=== PATIENT | female | born 1930 | race Caucasian/White ===

== ENCOUNTER 2016-07-17 18:16 | Emergency (ER) | payer MEDICARE ==
[2016-07-17] MEDS ORDERED: diPHENhydraMINE IV* 50 MG/ML 1 ml VIAL (BENADRYL) IV ONE (18:40)
[2016-07-17] MEDS ORDERED: Metoclopramide IV* 5 MG/ML 2 ML VIAL IV ONE (18:40)
[2016-07-17] MEDS ORDERED: Ketorolac INJ* 30 MG/ML 1 ML VIAL IV ONE (18:40)
--- NOTE | 2016-07-17 19:42 | RAD ---
Indication: Ataxia. CT of the brain was performed without IV contrast. Ventricular structures are midline. No midline shift is noted. The extra-axial spaces are unremarkable. There is no evidence of intracranial mass or hemorrhage. No other high or low density lesions are identified. The bony calvaria is grossly unremarkable. Mastoid air cells and paranasal sinuses are otherwise unremarkable. IMPRESSION: No intracranial mass or hemorrhage is noted.
[2016-07-17 21:08] LABS: Hematocrit 36 % (35-47); Hemoglobin 11.9 g/dl (12.0-16.0); Mean Corpuscular HGB Conc 33 g/dl (31-36); Mean Corpuscular Hemoglobin 29 pg (27-31); Mean Corpuscular Volume 87 fL (80-97); Mean Platelet Volume 9 um3 (7.4-10.4); Red Cell Distribution Width 18 % (10.5-15); White Blood Count 3.8 10^3/ul (3.5-10.8)
[2016-07-17 21:24] LABS: Albumin 3.6 g/dL (3.2-5.2); BUN/Creatinine Ratio 19.1 (8-20); Calcium 8.3 mg/dL (8.6-10.3); EGFR Non-African American 82.4 (>60); Globulin 2.8 g/dL (2-4); Potassium 3.5 mmol/L (3.5-5.0); Total Bilirubin 0.4 mg/dL (0.2-1.0); Total Protein 6.4 g/dL (6.4-8.9)
[2016-07-17] MEDS ORDERED: Aspirin TAB* 325 MG PO ONE (22:12)
[2016-07-17 22:42] VITALS: BP 122/61
--- NOTE | 2016-07-17 22:55 | ED ---
Calros Milian Salem, scribed for Jose Ta MD on 07/17/16 at 1944 . Dizziness - HPI Summary HPI Summary: Patient is a 86 y/o female who presents to the ED per EMS with head spinning dizziness since waking up this morning. She reports a left-sided frontal migraine, staggering, and nausea. She also reports changes in vision, but denies double vision. She also denies tinnitus. Dizziness is worsened with movement of the head. Pt states she has not eaten all day. She also states she was recently diagnosed with early macular degeneration and was started on Areds 2. She states that she has a hx of migraines, induced with stress. - History Of Current Complaint Chief Complaint: EDDizziness Stated Complaint: SYNCOPE Time Seen by Provider: 07/17/16 18:29 Hx Obtained From: Patient Onset/Duration: Gradually Timing: Intermittent Episode Lasting Severity Initially: Moderate Severity Currently: Moderate Character: Head Spinning, Dizzy Aggravating Factor(s): Change In Head Position Alleviating Factor(s): Nothing Associated Signs And Symptoms: Positive: Nausea, Other: - Headache. Staggering. - Allergies/Home Medications Allergies/Adverse Reactions: Allergies Allergy/AdvReac Type Severity Reaction Status Date / Time Sumatriptan [From Imitrex] Allergy Hallucinati Verified 07/17/16 18:25 ons seasonal/environmental Allergy Runny Nose Uncoded 06/27/16 11:48 allergies PMH/Surg Hx/FS Hx/Imm Hx Endocrine/Hematology History: Reports: Hx Thyroid Disease - had 1/2 thyroid removed, Other Endocrine/Hematological Disorders - hx cancer - breast, colon, melanoma Denies: Hx Diabetes Cardiovascular History: Reports: Hx Angina, Hx Deep Vein Thrombosis - PE May 2010, on coumadin approx 6 mos, Hx Hypertension, Hx Rheumatic Fever - A CHILD , Other Cardiovascular Problems/Disorders - PULMONARY EMBOLISMS 3 YEARS AGO Denies: Hx Congestive Heart Failure, Hx Pacemaker/ICD Respiratory History: Reports: Hx Pulmonary Embolism - 2008 Denies: Hx Asthma, Hx Chronic Obstructive Pulmonary Disease (COPD) GI History: Reports: Hx Gastroesophageal Reflux Disease, Other GI Disorders - diarrhea, constipation Denies: Hx Ulcer History: Reports: Other Problems/Disorders - incontinence Denies: Hx Renal Disease Musculoskeletal History: Reports: Hx Arthritis - OSTEOARTHRITIS KNEES, Hx Back Problems, Other Musculoskeletal History - chronic pain - back, knees Sensory History: Reports: Hx Cataracts - removed, Hx Contacts or Glasses, Hx Hearing Problem Denies: Hx Hearing Aid Opthamlomology History: Reports: Hx Cataracts - removed, Hx Contacts or Glasses Neurological History: Reports: Hx Headaches, Hx Migraine, Other Neuro Impairments/Disorders - HX POLIO Psychiatric History: Reports: Hx Anxiety - ON MEDS, Hx Depression - ON MEDS Denies: Hx Panic Disorder, Other Psychiatric Issues/Disorders - Cancer History Cancer Type, Location and Year: SKIN RIGHT ARM. COLON. RIGHT BREAST Hx Chemotherapy: No Hx Radiation Therapy: Yes - Surgical History Surgery Procedure, Year, and Place: HYSTERECTOMY 1972; RIGHT BREAST LUMPECTOMY x2 1999, COLON RESECTION 2004, illeostomy placement and reversal 2004 & 2005, HERNIA, THYROIDECTOMY 1984 (04/08), knee arthroscopy, APPENDECTOMY, TONSILLS AND ADDENOIDS, BILATERAL total knee ,BILATERAL CATARACTS 2000, abdominal hernia 2006. knee replacement - right - 2013. knee replacement - left - 2015 Hx Anesthesia Reactions: Yes - N/V Infectious Disease History: No Infectious Disease History: Reports: Hx Shingles - HX SHINGLES Denies: Hx Clostridium Difficile, Hx Hepatitis, Hx Human Immunodeficiency Virus (HIV), Hx of Known/Suspected MRSA, Hx Tuberculosis, Hx Known/Suspected VRE , Hx Known/Suspected VRSA, History Other Infectious Disease, Traveled Outside the [place] in Last 30 Days - Family History Known Family History: Positive: Cardiac Disease - Mother and brother. - Social History Alcohol Use: Rare Alcohol Amount: occassional glass of wine Hx Substance Use: No Substance Use Type: Reports: None Hx Tobacco Use: No Smoking Status (MU): Never Smoked Tobacco Amount Used/How Often: 5 CIGARETTES A DAY/ 2 YRS Length of Time of Smoking/Using Tobacco: 2 YRS Have You Smoked in the Last Year: No Review of Systems Negative: Fever Positive: Other - Changes in vision. . Negative: Diplopia Positive: Other - No tinnitus. Positive: Nausea Positive: Other - Stagger with ambulation. Neurological: Other - Head spinning, dizziness. Positive: Headache - Left-sided frontal migraine. All Other Systems Reviewed And Are Negative: Yes Physical Exam Triage Information Reviewed: Yes Vital Signs On Initial Exam: Initial Vitals Temp Pulse Resp BP Pulse Ox 100.5 F 87 20 150/87 97 07/17/16 18:20 07/17/16 18:20 07/17/16 18:20 07/17/16 18:20 07/17/16 18:20 Vital Signs Reviewed: Yes Appearance: Positive: Well-Appearing, No Pain Distress, Obese Skin: Positive: Warm, Skin Color Reflects Adequate Perfusion, Dry Head/Face: Positive: Normal Head/Face Inspection Eyes: Positive: Normal, Other: - No nystagmus. ENT: Positive: Other - No bruits. Neck: Positive: Supple, Nontender Respiratory/Lung Sounds: Positive: Clear to Auscultation, Breath Sounds Present Cardiovascular: Positive: RRR Abdomen Description: Positive: Nontender, Soft Bowel Sounds: Positive: Present Musculoskeletal: Positive: Normal Neurological: Positive: Normal, Sensory/Motor Intact, Alert, Oriented to Person Place, Time, CN Intact II-III, Reflexes Intact Psychiatric: Positive: Anxious Diagnostics - Vital Signs Vital Signs Temp Pulse Resp BP Pulse Ox 07/17/16 18:26 100.5 F 94 24 161/73 96 07/17/16 18:20 100.5 F 87 20 150/87 97 - Laboratory Lab Results: Lab Results 07/17/16 07/17/16 07/17/16 Range/Units 20:55 20:55 20:55 WBC 3.8 (3.5-10.8) 10^3/ul RBC 4.10 (4.0-5.4) 10^6/ul Hgb 11.9 L (12.0-16.0) g/dl Hct 36 (35-47) % MCV 87 (80-97) fL MCH 29 (27-31) pg MCHC 33 (31-36) g/dl RDW 18 H (10.5-15) % Plt Count 141 L (150-450) 10^3/ul MPV 9 (7.4-10.4) um3 Neut % (Auto) 72.3 (38-83) % Lymph % (Auto) 13.3 L (25-47) % Dale % (Auto) 13.3 H (1-9) % Eos % (Auto) 0.5 (0-6) % Baso % (Auto) 0.6 (0-2) % Absolute Neuts (auto) 2.7 (1.5-7.7) 10^3/ul Absolute Lymphs (auto) 0.5 L (1.0-4.8) 10^3/ul Absolute Monos (auto) 0.5 (0-0.8) 10^3/ul Absolute Eos (auto) 0 (0-0.6) 10^3/ul Absolute Basos (auto) 0 (0-0.2) 10^3/ul Absolute Nucleated RBC 0 10^3/ul Nucleated RBC % 0.1 INR (Anticoag Therapy) 0.94 (0.89-1.11) Sodium 137 (133-145) mmol/L Potassium 3.5 (3.5-5.0) mmol/L Chloride 106 (101-111) mmol/L Carbon Dioxide 24 (22-32) mmol/L Anion Gap 7 (2-11) mmol/L BUN 13 (6-24) mg/dL Creatinine 0.68 (0.51-0.95) mg/dL Est GFR ( Amer) 106.0 (>60) Est GFR (Non-Af Amer) 82.4 (>60) BUN/Creatinine Ratio 19.1 (8-20) Glucose 111 H (70-100) mg/dL Lactic Acid (0.5-2.0) mmol/L Calcium 8.3 L (8.6-10.3) mg/dL Total Bilirubin 0.40 (0.2-1.0) mg/dL AST 22 (13-39) U/L ALT 20 (7-52) U/L Alkaline Phosphatase 70 (34-104) U/L Troponin I 0.00 (<0.04) ng/mL Total Protein 6.4 (6.4-8.9) g/dL Albumin 3.6 (3.2-5.2) g/dL Globulin 2.8 (2-4) g/dL Albumin/Globulin Ratio 1.3 (1-3) TSH (0.34-5.60) mcIU/mL 07/17/16 07/17/16 Range/Units 20:55 20:55 WBC (3.5-10.8) 10^3/ul RBC (4.0-5.4) 10^6/ul Hgb (12.0-16.0) g/dl Hct (35-47) % MCV (80-97) fL MCH (27-31) pg MCHC (31-36) g/dl RDW (10.5-15) % Plt Count (150-450) 10^3/ul MPV (7.4-10.4) um3 Neut % (Auto) (38-83) % Lymph % (Auto) (25-47) % Dale % (Auto) (1-9) % Eos % (Auto) (0-6) % Baso % (Auto) (0-2) % Absolute Neuts (auto) (1.5-7.7) 10^3/ul Absolute Lymphs (auto) (1.0-4.8) 10^3/ul Absolute Monos (auto) (0-0.8) 10^3/ul Absolute Eos (auto) (0-0.6) 10^3/ul Absolute Basos (auto) (0-0.2) 10^3/ul Absolute Nucleated RBC 10^3/ul Nucleated RBC % INR (Anticoag Therapy) (0.89-1.11) Sodium (133-145) mmol/L Potassium (3.5-5.0) mmol/L Chloride (101-111) mmol/L Carbon Dioxide (22-32) mmol/L Anion Gap (2-11) mmol/L BUN (6-24) mg/dL Creatinine (0.51-0.95) mg/dL Est GFR ( Amer) (>60) Est GFR (Non-Af Amer) (>60) BUN/Creatinine Ratio (8-20) Glucose (70-100) mg/dL Lactic Acid 0.7 (0.5-2.0) mmol/L Calcium (8.6-10.3) mg/dL Total Bilirubin (0.2-1.0) mg/dL AST (13-39) U/L ALT (7-52) U/L Alkaline Phosphatase (34-104) U/L Troponin I (<0.04) ng/mL Total Protein (6.4-8.9) g/dL Albumin (3.2-5.2) g/dL Globulin (2-4) g/dL Albumin/Globulin Ratio (1-3) TSH 0.27 L (0.34-5.60) mcIU/mL Result Diagrams: 07/17/16 20:55 07/17/16 20:55 Lab Statement: Any lab studies that have been ordered have been reviewed, and results considered in the medical decision making process. - CT BRAIN CT Interpretation Completed By: Radiologist - IMPRESSION: No intracranial mass or hemorrhage is noted. - EKG 1815 EKG Interpretation: Sinus rhythm @ 88 bpm. Re-Evaluation - Re-Evaluation First Eval Re-Evaluation Time: 21:37 Second Eval Re-Evaluation Time: 22:10 Comment: Discussed plan. Dizzy Course/Dx - Course Course Of Treatment: Ms. Arciniega essentially had two complaints. She woke up this AM with vertigo when she moved her head accompanied by N/V. She reported no diplopia or other cranial nerve symptoms. Shortly after she got here, she developed a classic (for her) migraine that was left sided throbbing pain. She gets them frequently when she is stressed. Her migraine improved with our ' migraine cocktail' of ketorolac, benedryl and reglan. Surprisingly so did her vertigo and she was able to get up and ambulate without difficulty. Her W/U was negative and I think this was a peripheral vertigo. She has an appointment with Dr. Mcdowell tomorrow and I will D/C her to F/U. - Diagnoses Provider Diagnoses: Migraine headache, Vertigo Discharge - Discharge Plan Condition: Stable Disposition: HOME Patient Education Materials: Vertigo (ED), Migraine Headache (ED) Referrals: Rohith Mcdowell MD [Primary Care Provider] - Additional Instructions: Keep appointment with Dr. Souza. The documentation as recorded by the Carlos garcia Salem accurately reflects the service I personally performed and the decisions made by me, Jose Ta MD.
== END 2016-07-17 22:43 | disposition home or self-care (01) ==
LOC: ED 18:16
DX: G43.909 Migraine, unspecified, not intractable, without status migrainosus (principal); R42 Dizziness and giddiness; R11.0 Nausea
CPT/HCPCS: 36415; 70450; 80053; 83605; 84443; 84484; 85025; 85610; 93005; 96374; 96375; 99282; J1200; J1885

== ENCOUNTER 2016-08-27 07:17 | Inpatient (IN) | payer MEDICARE ==
--- NOTE | 2016-08-19 13:08 | HP ---
HISTORY AND PHYSICAL: DATE OF OFFICE VISIT: 08/19/16 DATE OF SURGERY: 08/27/16 SURGEON: Latanya Vang MD (DICTATED BY RINA OLIVARES) PROCEDURE: Left total hip arthroplasty. CHIEF COMPLAINT: Left hip pain. HISTORY OF PRESENT ILLNESS: Ms. Arciniega is an 86-year-old female with complaints of left hip pain secondary to advanced osteoarthritis. She has failed conservative management and has elected to proceed with a left total hip arthroplasty, which is scheduled for 08/27/16. PAST MEDICAL HISTORY: 1. Pulmonary embolism. 2. History of breast cancer. 3. Migraines. 4. Depression. 5. Hypothyroidism. 6. Macular degeneration. 7. TIA. 8. Post-polio syndrome. 9. Rheumatic fever. PAST SURGICAL HISTORY: 1. Lumpectomy. 2. Partial thyroidectomy. 3. Hysterectomy. 4. Appendectomy. 5. Cataract removal. 6. Polyp removal from colon, ileostomy, and reversal of ileostomy. 7. Hernia repair. 8. Bilateral total knee arthroplasties. CURRENT MEDICATIONS: 1. Xanax 0.5 mg 3 times a day as needed. 2. Verapamil 240 mg twice a day. 3. Fluoxetine 40 mg once a day. 4. Synthroid 100 mcg once a day. 5. Systane eye drops as needed. 6. Lisinopril 20 mg once a day. 7. AREDS. 8. Paxil. 9. Buspirone. 10. Tylenol. 11. Percocet. 12. Colace. ALLERGIES: To IMITREX. FAMILY HISTORY: Diabetes, heart disease, brain cancer, and Parkinson's. SOCIAL HISTORY: She is an 86-year-old female. She lives alone. She denies use of drugs or smoking. She uses occasional alcohol. REVIEW OF SYSTEMS: A complete 14-point review of systems was reviewed with the patient and was positive for a history of pulmonary embolism, vertigo, and thyroid disease. PHYSICAL EXAMINATION GENERAL: She is well developed, well nourished, in no acute distress. She is alert. VITAL SIGNS: She stands 5 feet 5 inches tall and weighs 200 pounds. Her blood pressure 116/71. Her heart rate 70. HEENT: Normocephalic, atraumatic. NECK: Supple. No palpable lymph nodes. PULMONARY: The lungs are clear to auscultation bilaterally. CARDIO: Regular rate and rhythm. Strong S1, S2. ABDOMEN: Soft, nontender, and nondistended. MUSCULOSKELETAL: Left lower extremity, the skin is intact. She walks with a slightly antalgic-type gait favoring her left hip. She has decreased internal and external rotation of her left hip. Her lower extremity muscle group strengths are intact at 5/5. She has 2+ dorsalis pedis pulses and intact sensation. NEUROLOGIC: She is alert and oriented x3. Cranial nerves II through XII are intact. ASSESSMENT AND PLAN: Ms. Arciniega is an 86-year-old female with complaints of left hip pain secondary to osteoarthritis. She has failed conservative management and has elected to proceed with a left total hip arthroplasty, which is scheduled for 08/27/[address] Vang discussed the risks and benefits of the surgery at today's visit and all of her questions were answered. Percocet and Coumadin were sent to her pharmacy for postoperative pain control and DVT prophylaxis. She will see Dr. Vang back 2 weeks after the surgery. RINA OLIVARES [id number]/[facility] #: [id number] MTDD
[~2016-08-27 07:17] MED LIST: Famotidine IV* 10 MG/ML 2 ML (20 mg) IV ONE
[2016-08-27] MEDS ORDERED: ceFAZolin 2 GM PREMIX(*) 2 GM/50 ML BAG IVPB ONE (07:36)
[2016-08-27] MEDS ORDERED: Famotidine IV* 10 MG/ML 2 ML (20 mg) ONE (07:36)
[2016-08-27] MEDS ORDERED: Ketorolac INJ* 30 MG/ML 1 ML VIAL ONE (08:21)
[2016-08-27] MEDS ORDERED: Lidocaine 2% PF * 5 ML VIAL ONE (08:21)
[2016-08-27] MEDS ORDERED: KETAMINE HCL* 50 MG/ML 10 ML VIAL ONE (08:21)
[2016-08-27] MEDS ORDERED: Propofol* 10 MG/ML 20 ML BTL IV PUSH ONE (08:21)
[2016-08-27] MEDS ORDERED: Ondansetron INJ* 2 MG/ML VIAL ONE (08:21)
[2016-08-27] MEDS ORDERED: fentaNYL* 50 MCG/ML 2 ML VIAL (100 MCG VIAL) ONE ×5 (08:21→13:06)
[2016-08-27] MEDS ORDERED: Midazolam* 1 MG/ML 5 ML VIAL (5 MG) ONE (08:21)
[2016-08-27] MEDS ORDERED: Dexamethasone IV* 4 MG/ML 1 ML (4 MG) ONE (08:21)
[2016-08-27] MEDS ORDERED: Cisatracurium* 2 MG/ML MDV 5 ML ONE (08:44)
[2016-08-27] MEDS ORDERED: Phenylephrine IV* 40 MCG/ML 10 ML SYRINGE ONE (10:08)
[2016-08-27] MEDS ORDERED: EPHEDrine (Pressors)* 50 MG/ML VIAL ONE (10:12)
[2016-08-27] MEDS ORDERED: Bupivacaine 0.5% SDV PF* 30 ML VIAL ONE (10:34)
[2016-08-27] MEDS ORDERED: Ondansetron INJ* 2 MG/ML VIAL IV PRN ×2 (11:28→12:25)
[2016-08-27] MEDS ORDERED: DiMENhydriNATE IV* 50 MG/ML VIAL IV PUSH PRN (11:28)
[2016-08-27] MEDS ORDERED: HYDROmorphone* 1 MG/ML 1 ML SYR ONE ×3 (11:47→13:35)
--- NOTE | 2016-08-27 12:12 | RAD ---
Indication: LEFT hip replacement. Comparison: No relevant prior exams available on the [facility] PACS for comparison. Technique: RIGHT lateral decubitus crosstable AP LEFT hip and pelvis 1008 hours. Report: Acetabular prosthesis component and femoral test fit/reamer component in place. No periprosthetic fracture evident. Overlying soft tissue edema and subcutaneous emphysema. IMPRESSION: Intraoperative control film.
[2016-08-27] MEDS ORDERED: Acetaminophen TAB* 325 MG PO PRN (12:19)
[2016-08-27] MEDS: fentaNYL* 50 MCG/ML 2 ML VIAL (100 MCG VIAL) IV PRN ×5 (12:24→13:19)
[2016-08-27] MEDS ORDERED: Ondansetron TAB* 4 MG PO PRN (12:25)
[2016-08-27] MEDS ORDERED: diPHENhydraMINE PO* 25 MG PO PRN (12:25)
[2016-08-27] MEDS ORDERED: diPHENhydraMINE IV* 50 MG/ML 1 ml VIAL (BENADRYL) IV PRN (12:25)
[2016-08-27] MEDS: HYDROmorphone* 1 MG/ML 1 ML SYR IV PRN ×5 (12:25→13:38)
[2016-08-27] MEDS ORDERED: Polyethylene Glycol 3350* 17 GM PACKET PO PRN (12:25)
[2016-08-27] MEDS ORDERED: Bisacodyl SUPP* 10 MG SUPP PR PRN (12:25)
[2016-08-27] MEDS ORDERED: ALPRAZolam TAB* 0.5 MG PO PRN (12:29)
[2016-08-27] MEDS ORDERED: ceFAZolin VIAL(*) 1 GM in NS 0.9% 50 ML* 50 ML IVPB SCH (13:00)
--- NOTE | 2016-08-27 13:38 | RAD ---
Edited for charges. INDICATION: Status post left total hip arthroplasty Comparison: Preoperative radiograph dated March 11, 2016 TECHNIQUE: An AP view of the pelvis was obtained. FINDINGS: The left hip prosthesis is anatomically aligned in the AP projection. There is no evidence of periprosthetic fracture. Again seen is surgical material, likely hernia repair mesh, overlying the right lower quadrant. IMPRESSION: Anatomic alignment of left hip prosthesis in the AP projection. [facility]
[2016-08-27] MEDS ORDERED: oxyCODONE/Acetamin 5/325 MG* TAB ONE (13:42)
[2016-08-27] MEDS: oxyCODONE/Acetamin 5/325 MG* TAB PO PRN ×3 (13:43→20:31)
[2016-08-27] MEDS ORDERED: Warfarin TAB(*) 6 MG PO ONE (17:00)
[2016-08-27] MEDS: ceFAZolin VIAL(*) 1 GM in NS 0.9% 50 ML* 50 ML IVPB SCH (17:59)
[2016-08-27] MEDS: PARoxetine HCL TAB* 10 MG PO SCH (17:59)
[2016-08-27] MEDS: busPIRone TAB* 5 MG PO SCH (20:22)
[2016-08-27] MEDS: Verapamil SR TAB* 240 MG PO SCH (20:22)
[2016-08-27] MEDS: Magnesium Hydroxide LIQ* 30 ML UDC PO SCH (20:23)
[2016-08-27] MEDS: Docusate CAP* 100 MG PO SCH (20:23)
[2016-08-27] MEDS ORDERED: Verapamil SR TAB* 240 MG PO SCH (21:00)
--- NOTE | 2016-08-27 21:46 | CONS ---
CONSULTATION REPORT: DATE OF CONSULT: 08/27/16 REQUESTING PHYSICIAN FOR CONSULT: Dr. Vang. ATTENDING PHYSICIAN WHILE IN THE HOSPITAL: Roque Valente MD (report being dictated by Javier Espinoza NP) PRIMARY CARE PROVIDER: Dr. Mcdowell. REASON FOR CONSULT: Medical management with comorbid medical conditions. HISTORY OF PRESENT ILLNESS: I refer you to Dr. Vang's H and P for further details. In short, Mrs. Arciniega is an 86-year-old female patient. She has a history of PE, breast cancer, migraines, and depression. She has a history of macular degeneration, hypothyroidism, TIA in the past, in addition to this rheumatic fever, and a history postpolio syndrome. She comes in to the orthopedic services today because she was being managed in the outpatient setting for left hip pain that she has had for sometime secondary to advanced osteoarthritis. She has failed conservative management and had ultimately elected to proceed with a left total hip which she underwent today. The hospitalist service was asked to evaluate to help manage her medical problem. She was evaluated in the PACU. She is complaining of having left hip pain. Of note, she did not receive spinal anesthesia. She had general anesthesia. She is awake. She denies feeling any chest pain or any shortness of breath. She denies she has any nausea. No abdominal discomfort. She states she does not feel like she is going to pass out. Her biggest complaint is she has pain in her left hip. She denies having any numbness or tingling in the lower extremities. Because of her medical complexity, we were asked to evaluate in consult. PAST MEDICAL HISTORY: Significant for: 1. History of pulmonary embolism that was provoked due to long travel. 2. Breast cancer. 3. Migraines. 4. Depression. 5. Hypothyroidism. 6. Macular degeneration. 7. TIA. 8. Rheumatic fever in the past. 9. Postpolio syndrome. 10. Hypertension. PAST SURGICAL HISTORY: 1. She has had a lumpectomy. 2. Partial thyroidectomy. 3. Hysterectomy. 4. Appendectomy. 5. Cataract extraction. 6. She has had a polyp resection, but that was complicated by a perforated bowel resulting in sepsis and an ileostomy. It has been reversed. 7. She has had a hernia repair and she has had bilateral total knee replacements and now left total hip replacement. HOME MEDICATIONS: According to her list include: 1. Percocet 1 tablet p.o. daily as needed. 2. BuSpar 5 mg p.o. b.i.d. 3. Verapamil 240 mg p.o. b.i.d. 4. Tylenol with codeine 1 tablet p.o. as instructed as needed. 5. Paxil 30 mg daily. 6. Lisinopril 20 mg daily. 7. Synthroid 100 mcg daily. 8. AREDS 1 capsule p.o. b.i.d. 9. Xanax 1 tablet p.o. t.i.d. as needed for anxiety. ALLERGIES TO MEDICATIONS: Include IMITREX. FAMILY HISTORY: Her mother has a history of hypertension. Father has a history of CVA. SOCIAL HISTORY: She does not smoke. She occasionally drinks alcohol. Surrogate decision maker, she is unable to identify this at this point, we will follow this back up. REVIEW OF SYSTEMS: There is no documented fever. She denied having any significant weight change. There was no double vision. She denies having any ear discharge. There is no rhinorrhea. There is no sore throat. There is no thyroid enlargement. She denied having any chest pain. There is no orthopnea. There is nocturnal dyspnea. Denied any abdominal pain. No nausea, no vomiting. No dysuria, no frequency. No seizure. No loss of consciousness, no pruritus, and no skin ulcerations. Review of 14 systems completed, all others negative. PHYSICAL EXAM: Reveals Vital Signs; blood pressure 136/71 with a pulse of 88, respirations 18, O2 sat 99%, and temperature 97.9. General: At this time, Ms. Arciniega is an 86-year-old female patient. She is sitting in the PACU bed. She does not appear to be in any acute distress. She is awake and she is alert, although she is pretty drowsy because of the anesthetic, but she is answering questions appropriately. HEENT: Head is atraumatic. Eyes: . Sclerae anicteric and not pale. Neck was supple. Throat: Oral mucosa appears to be moist. No oropharyngeal erythema. Heart sounds, S1 and S2. Regular rate and rhythm. No murmurs, rubs, or gallops. Lungs: Clear to auscultation bilaterally. No wheezes, rales, or rhonchi. Abdomen was soft, flat, and nontender. Bowel sounds present. Extremities: Pulses were 2+ throughout. She is unable to move the lower extremity as she does have a hip abductor pillow in place. Distal CSM checks are intact. Neurologically she is drowsy, but she awoke and she follows commands appropriately. She is oriented x3. Her home advisor are equal, she had no gross focal deficits. Her skin is intact with the exception, she has an incision to the left hip which is covered with an ABD and is clean, dry, and intact. DIAGNOSTIC STUDIES/LAB DATA: Preoperatively revealed WBC of 3.8, RBC of 4.10, hemoglobin 11.9, hematocrit 36, and platelet count 141. INR was 0.98. The sodium was 137, potassium 3.5, chloride 106, bicarb 24, BUN 13, creatinine 0.68. Her glucose is 111, lactic 0.7. AST 22, ALT 20, TSH was 0.27. Preop urine showed high specific gravity of 1.032, 1+ protein, trace ketones, 1+ bili , 2+ leukocyte esterase, 3+ wbc's. Urine culture was negative. She had a preop cardiology evaluation that did state that in the note she had a negative stress test recently. There was a preop chest x-ray, which showed no active disease. There was a preop EKG, which showed a normal sinus rhythm, rate of 80 , no ST-elevation or T-wave inversions. Old medical records reviewed. ASSESSMENT AND PLAN: Ms. Arciniega is an 86-year-old female patient coming into the orthopedic service today for an elective total hip replacement. We were asked to evaluate in consult. My recommendations at this point are: 1. Status post left total hip replacement. Defer the management to Dr. Vang and her team. 2. History of PE, obviously DVT prophylaxis will be a must. I do no think she needs therapeutic anticoagulation at this time as the PE was provoked in the past, but we need to obviously keep this in the forefront should she have any complications such as renal respiratory distress or hypoxia. She is already being placed on Lovenox and being started on Coumadin which I believe is appropriate. 3. History of breast cancer, follow with primary. 4. Migraines. She has p.r.n. Tylenol available. We will treat as needed. 5. Depression. Continue with supportive care. 6. Hypothyroidism. Continue her Synthroid. 7. Macular degeneration. Follow with her primary. 8. History of transient ischemic attack, continue secondary prevention. 9. Hypertension. We will go ahead and continue her meds as prescribed with hold parameters. I am going to continue lisinopril and verapamil. Her postop blood pressures now are actually in the 160s, we will monitor these. 10. History of rheumatic fever, follow with the primary. 11. History of polio, follow with the primary. 12. DVT prophylaxis, again high risk. She has been started on Lovenox and warfarin, will continue. 13. Fluids, electrolytes, and nutrition. I would recommend a heart-healthy diet. 14. Code status, full code. TIME SPENT: Time spent on the consult 60 minutes, greater than half the time spent [id number] with the patient obtaining my history and physical; other half the time spent going over the plan of care with the patient and implementing plan of care. I discussed the plan of care with my attending Dr. Valente who is agreement. JAVIER ESPINOZA NP CC: Dr. Vang; Dr. Mcdowell* [id number]/[facility] #: [id number] BRIGITTE
[2016-08-28] MEDS: oxyCODONE/Acetamin 5/325 MG* TAB PO PRN ×5 (00:18→17:37)
[2016-08-28] MEDS: ceFAZolin VIAL(*) 1 GM in NS 0.9% 50 ML* 50 ML IVPB SCH ×2 (01:54→09:39)
[2016-08-28] MEDS: Levothyroxine TAB* 100 MCG TAB PO SCH (05:46)
[2016-08-28 06:09] LABS: Hematocrit 29 % (35-47); Hemoglobin 9.5 g/dl (12.0-16.0)
[2016-08-28 06:25] LABS: BUN/Creatinine Ratio 29.2 (8-20); Calcium 7.9 mg/dL (8.6-10.3); EGFR African American 111.7 (>60); EGFR Non-African American 86.8 (>60)
[2016-08-28] MEDS: Lisinopril TAB* 10 MG PO SCH (08:26)
[2016-08-28] MEDS: Docusate CAP* 100 MG PO SCH ×2 (08:26→20:19)
[2016-08-28] MEDS: busPIRone TAB* 5 MG PO SCH ×2 (08:26→20:19)
[2016-08-28] MEDS: Verapamil SR TAB* 240 MG PO SCH ×2 (08:26→20:19)
[2016-08-28] MEDS: Magnesium Hydroxide LIQ* 30 ML UDC PO SCH ×2 (08:30→20:19)
[2016-08-28] MEDS ORDERED: LISINOPRIL PO SCH (09:00)
--- NOTE | 2016-08-28 10:36 | PN ---
Progress Note - Progress Note SOAP: Subjective: []Patient seen OOB in chair. Pain well managed in her left hip. Denies SOB, CP or dizziness. Objective: [] Vital Signs Temp 98.1 F 08/28/16 07:33 Pulse 78 08/28/16 07:33 Resp 18 08/28/16 09:25 BP 120/54 08/28/16 07:33 Pulse Ox 95 08/28/16 08:00 Intake & Output 08/27/16 08/28/16 08/28/16 18:59 06:59 18:59 Intake Total 2310 2480 360 Output Total 675 325 Balance 2310 1805 35 Weight 199 lb Intake: IV Fluids 2250 980 LR 2250 980 IVPB 60 ABX - CEFAZOLIN 60 Oral 60 1440 360 Output: Condon 675 325 Other: # Bowel Movements 0 Laboratory Results - last 24 hr 08/28/16 08/28/16 08/28/16 05:50 05:50 05:50 Hgb 9.5 L Hct 29 L INR (Anticoag Therapy) 1.07 Sodium 134 Potassium 4.0 Chloride 107 Carbon Dioxide 23 Anion Gap 4 BUN 19 Creatinine 0.65 Est GFR ( Amer) 111.7 Est GFR (Non-Af Amer) 86.8 BUN/Creatinine Ratio 29.2 H Glucose 136 H Calcium 7.9 L Left hip dressing is dry and intact calf is non tender and soft + DF/PF of the left foot neuro intact distally Assessment: []s/p Left total hip arthroplasty POD #1 Plan: []PT/OT WBAT LLE Coumadin with Lovenox bridge, 8 mg today Discharge to [facility] for rehab Friday
[2016-08-28] MEDS ORDERED: PRESERVISION AREDS PO SCH (11:00)
[2016-08-28] MEDS: Enoxaparin(*) 30 MG/0.3 ML SYR SUBCUT SCH (12:36)
--- NOTE | 2016-08-28 12:52 | PN ---
Subjective Date of Service: 08/28/16 Interval History: Patient seen and examined at bedside. She reports increased left hip pain today, recently took 2 Percocet and feels "they're starting to kick in." Denies CP, SOB, abd pain, n/v. No other acute concerns. Family History: Unchanged from Admission Social History: Unchanged from Admission Past Medical History: Unchanged from Admission Objective Active Medications: Acetaminophen (Tylenol Tab*) 650 mg PO Q4H PRN PRN Reason: mild pain or fever Alprazolam (Xanax Tab*) 0.5 mg PO TID PRN PRN Reason: ANXIETY Bisacodyl (Dulcolax Supp*) 10 mg OR DAILY PRN PRN Reason: constipation Buspirone HCl (Buspar Tab*) 5 mg PO BID [facility] Last Admin: 08/28/16 08:26 Dose: 5 mg Diphenhydramine HCl (Benadryl Iv*) 12.5 mg IV Q6H PRN PRN Reason: PRURITIS Last Admin: 08/27/16 20:31 Dose: 12.5 mg Diphenhydramine HCl (Benadryl Po*) 25 mg PO Q6H PRN PRN Reason: INSOMNIA Docusate Sodium (Colace Cap*) 100 mg PO BID [facility] Last Admin: 08/28/16 08:26 Dose: 100 mg Enoxaparin Sodium (Lovenox(*)) 30 mg SUBCUT Q24H [facility] Last Admin: 08/28/16 12:36 Dose: 30 mg Lactated Ringer's (Lactated Ringers 1000 Ml Bag*) 1,000 mls @ 100 mls/hr IV PER RATE [facility] Last Admin: 08/28/16 01:53 Dose: 100 mls/hr Lactulose (Lactulose*) 30 ml PO Q6H PRN PRN Reason: constipation Levothyroxine Sodium (Synthroid Tab*) 100 mcg PO 0600 [facility] Last Admin: 08/28/16 05:46 Dose: 100 mcg Lisinopril (Prinivil Tab*) 20 mg PO QAM [facility] Last Admin: 08/28/16 08:26 Dose: 20 mg Magnesium Hydroxide (Milk Of Magnesia Liq*) 30 ml PO BID [facility] Last Admin: 08/28/16 08:30 Dose: Not Given Morphine Sulfate (Morphine Inj (Syringe)*) 5 mg IV Q2H PRN PRN Reason: PAIN Multivitamins/Minerals (Preservision Areds(Multivitamins/Mineral)(Nf)) 1 cap PO DAILY [facility] Last Admin: 08/28/16 12:39 Dose: Not Given Ondansetron HCl (Zofran Inj*) 4 mg IV Q6H PRN PRN Reason: nausea Ondansetron HCl (Zofran Tab*) 4 mg PO Q6H PRN PRN Reason: NAUSEA Oxycodone HCl (Roxycodone Tab*) 10 mg PO Q4H PRN PRN Reason: breakthrough pain Oxycodone/Acetaminophen (Percocet 5/325 Tab*) 1 tab PO Q3H PRN PRN Reason: PAIN - MODERATE Last Admin: 08/28/16 04:21 Dose: 1 tab Oxycodone/Acetaminophen (Percocet 5/325 Tab*) 2 tab PO Q3H PRN PRN Reason: PAIN - MODERATE Last Admin: 08/28/16 12:35 Dose: 2 tab Paroxetine HCl (Paxil Tab*) 30 mg PO QPM [facility] Last Admin: 08/27/16 17:59 Dose: 30 mg Polyethylene Glycol/Electrolytes (Miralax*) 17 gm PO DAILY PRN PRN Reason: Constipation Verapamil HCl (Calan Sr Tab*) 240 mg PO BID [facility] Last Admin: 08/28/16 08:26 Dose: 240 mg Warfarin Sodium (Coumadin Tab(*)) 8 mg PO ONCE@1700 ONE PRN Reason: Protocol Stop: 08/28/16 17:01 Vital Signs 08/27/16 08/27/16 08/27/16 12:59 13:00 13:15 Temperature Pulse Rate 85 83 Respiratory 16 16 16 Rate Blood Pressure 163/67 144/65 (mmHg) O2 Sat by Pulse 95 100 Oximetry 08/27/16 08/27/16 08/27/16 13:19 13:30 13:38 Temperature Pulse Rate 89 Respiratory 16 16 16 Rate Blood Pressure 140/66 (mmHg) O2 Sat by Pulse 100 Oximetry 08/27/16 08/27/16 08/27/16 13:43 13:45 13:59 Temperature Pulse Rate 85 86 Respiratory 16 16 16 Rate Blood Pressure 144/62 133/65 (mmHg) O2 Sat by Pulse 99 100 Oximetry 08/27/16 08/27/16 08/27/16 14:13 14:17 14:19 Temperature 97.3 F 97.3 F Pulse Rate 85 85 Respiratory 16 16 16 Rate Blood Pressure 149/65 149/65 (mmHg) O2 Sat by Pulse 99 99 Oximetry 08/27/16 08/27/16 08/27/16 15:18 15:41 16:00 Temperature 97.7 F Pulse Rate 90 Respiratory 14 Rate Blood Pressure 119/93 (mmHg) O2 Sat by Pulse 100 100 100 Oximetry 08/27/16 08/27/16 08/27/16 16:38 16:39 18:21 Temperature 98.1 F 97.9 F Pulse Rate 92 82 Respiratory 16 16 16 Rate Blood Pressure 114/73 121/61 (mmHg) O2 Sat by Pulse 97 96 Oximetry 08/27/16 08/27/16 08/27/16 18:39 20:11 20:12 Temperature 98.4 F Pulse Rate 83 Respiratory 16 16 Rate Blood Pressure 122/55 (mmHg) O2 Sat by Pulse 96 98 Oximetry 08/27/16 08/27/16 08/27/16 20:31 20:36 21:31 Temperature Pulse Rate Respiratory 18 18 16 Rate Blood Pressure (mmHg) O2 Sat by Pulse Oximetry 08/27/16 08/28/16 08/28/16 22:25 00:17 00:18 Temperature 97.7 F Pulse Rate 87 Respiratory 16 16 16 Rate Blood Pressure 119/57 (mmHg) O2 Sat by Pulse 99 Oximetry 08/28/16 08/28/16 08/28/16 01:58 03:47 04:21 Temperature 98.1 F Pulse Rate 68 Respiratory 18 16 18 Rate Blood Pressure 113/52 (mmHg) O2 Sat by Pulse 98 Oximetry 08/28/16 08/28/16 08/28/16 06:21 07:25 07:33 Temperature 98.1 F Pulse Rate 78 Respiratory 16 18 18 Rate Blood Pressure 120/54 (mmHg) O2 Sat by Pulse 95 Oximetry 08/28/16 08/28/16 08/28/16 08:00 09:25 12:32 Temperature 97.6 F Pulse Rate 76 Respiratory 18 18 18 Rate Blood Pressure 149/55 (mmHg) O2 Sat by Pulse 95 95 Oximetry 08/28/16 12:35 Temperature Pulse Rate Respiratory 20 Rate Blood Pressure (mmHg) O2 Sat by Pulse Oximetry Oxygen Devices in Use Now: None Appearance: Older female, lying in bed, NAD Eyes: PERRLA Ears/Nose/Mouth/Throat: Clear Oropharnyx, Mucous Membranes Moist Neck: NL Appearance and Movements; NL JVP Respiratory: Symmetrical Chest Expansion and Respiratory Effort, Clear to Auscultation Cardiovascular: NL Sounds; No Murmurs; No JVD, RRR Abdominal: NL Sounds; No Tenderness; No Distention Extremities: - - left hip dressing c/d/i, distally nvi Neurological: Alert and Oriented x 3 Lines/Tubes/Other Access: Clean, Dry and Intact Peripheral IV Nutrition: Taking PO's Result Diagrams: 08/28/16 05:50 08/28/16 05:50 Assess/Plan/Problems-Billing Assessment: Ms. 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 - Patient Problems (1) Status post total replacement of left hip Code(s): Z96.642 - PRESENCE OF LEFT ARTIFICIAL HIP JOINT Comment: POD #1, management per ortho PT/OT HH stable, continue to follow Pain management (2) HTN (hypertension) Code(s): I10 - ESSENTIAL (PRIMARY) HYPERTENSION Comment: Normotensive. Continue lisinopril and verapamil. (3) Hypothyroidism Code(s): E03.9 - HYPOTHYROIDISM, UNSPECIFIED Comment: Continue levothyroxine. (4) Migraines Code(s): G43.909 - MIGRAINE, UNSP, NOT INTRACTABLE, WITHOUT STATUS MIGRAINOSUS Comment: Not an active issue PRN acetaminophen available (5) Depression with anxiety Comment: Stable Continue buspirone, paroxetine, prn alprazolam (6) Macular degeneration Code(s): H35.30 - UNSPECIFIED MACULAR DEGENERATION Comment: Continue AREDS multivitamin. (7) DVT prophylaxis Code(s): JYP4647 - Comment: Per ortho Warfarin and enoxaparin Status and Disposition: Inpatient admission. Dispo per ortho. Hospitalist co-medical management. Will follow with you.
[2016-08-28] MEDS ORDERED: Warfarin TAB(*) 4 MG PO ONE (17:00)
[2016-08-28] MEDS: PARoxetine HCL TAB* 10 MG PO SCH (17:38)
[2016-08-28] MEDS: Morphine INJ* 10 MG/ML 1 ML SYRINGE IV PRN (17:43)
[2016-08-28] MEDS: PRESERVISION AREDS PO SCH (20:18)
[2016-08-28] MEDS: oxyCODONE TAB* 5 MG TAB PO PRN (21:10)
--- NOTE | 2016-08-29 00:23 | OP ---
OPERATIVE NOTE: DATE OF OPERATION: 08/27/16 DATE OF : 34 ATTENDING SURGEON: Latanya Vang MD [employer]CE [employer] INST[employer]ATION SUPERVISOR: RINA Kovacs Ms. Mendez did help throughout the procedure with preparation of the leg, wound retraction, manipula tion of the hip, and wound closure. ANESTHESIOLOGIST: Dr. Sam. ANESTHESIA: General. 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 OPERATIVE PROCEDURE: Left total hip arthroplasty. COMPLICATIONS: None. ESTIMATED BLOOD LOSS: 250 cc. SPECIMEN: Bone and cartilage, femoral head, and acetabular release sent to pathology. HARDWARE: This is uncemented [place] total hip hardware. For the cup, a Trident hemispherical acet abular shell 52E, a 25 mm and a 20 mm screw. Trident X3 0-degree polyethylene insert 36E. For the stem, an accolade TMZF size 3 with a 132-degree neck and a 40, -2.5 36-mm Biolox delta ceramic V40 f emoral head. BRIEF HISTORY/INDICATIONS: Ms. Arciniega is an 86-year-old female with years of increasingly severe le ft hip pain. Radiographs displayed severe end-stage arthritis of the hip joint. She failed conserv ative treatment with the anti- inflammatories, pain medication, physical therapy, and intra-articula r injection. Due to continued pain and decreased quality of life, she wished to proceed with left to teena hip arthroplasty. Informed consent was obtained from the patient. She understood the risks of the surgery included, but were not limited to bleeding, infection, damage to nearby structures, cont inued pain, need for further surgery, intraoperative fracture, nerve palsy, hardware failure or loos ening, dislocation, leg length discrepancy, stroke, heart attack, blood clot, and . She wished to proceed. INTRAOPERATIVE FINDINGS: Intraoperatively, the patient was noted to have complete loss of cartilage along the femoral head and acetabulum with significant osteophyte formation. She had significant o steopenia noted throughout the procedure. DESCRIPTION OF PROCEDURE: Ms. Arciniega was identified in the preanesthesia unit. Her left lower extre mity was marked as the correct operative side. Informed consent was signed and placed in the chart. The patient was taken to the operating room and placed under general anesthesia. A Condon catheter was placed. The patient was placed in the right lateral decubitus position on the peg board. All bony prominences were well padded. Left lower extremity was prepped and draped in the usual sterile fashion. Preop time-out was made to correctly identify the patient's side and site. Appropriate p erioperative antibiotics were given within 1 hour of incision. A 14 cm posterior hip incision was made with a 10 blade and carried down to the lateral fascial laye r. The lateral fascial layer was incised in line with the skin incision. Charnley retractor was pl aced and the posterior aspect of the hip joint was visualized. The piriformis and conjoined tendons were identified and elevated off the posterolateral femur. These were tagged with two #5 Ethibonds . Next, a posterolateral capsular flap was made with electrocautery and tagged with two #5 Ethibond s. The hip was carefully dislocated. Lesser troch to the center of the femoral head measured 52 mm . Oscillating saw was used to make the appropriate femoral neck cut and the femoral head was sent t o pathology. The femur was carefully retracted anteriorly. Long-handled knife was used to remove any remaining l abrum from the acetabular rim. Extreme osteophyte formation and loss of cartilage was noted. The a cetabulum was sequentially reamed up to a size 51. A size 52 Trident hemispherical acetabular shell was chosen as the final implant. A good bleeding bone bed was obtained. Size 51 trial had good fi t. The Trident hemispherical acetabular shell 52E was impacted into the acetabulum. There was sati sfactory anteversion and abduction angle. Stability was good. One 20-mm and one [address] aced in the superior posterior quadrant for extra stability due to the osteopenia. A Trident X3 0-d egree polyethylene insert was chosen, 36E and impacted into the acetabulum without difficulty. Stab ility of the liner was checked and rechecked and noted to be stable. Next, attention was turned to preparation of the proximal femur. A canal finder was used to enter t he proximal femur. Proximal femur was sequentially broached up to a size 3. The size 3 had good an teversion and fit. A 132-degree neck trial was chosen as well as a 36+0 femoral head trial. The hi p was reduced and taken through a range of motion. Soft tissue tension was slightly increased, ther efore a -2.5 head trial was placed. The hip was reduced and taken through a range of motion. Soft t issue tension and left lengths were appropriate. Lesser troch to the center of the femoral head luke sured 54 mm. The hip was stable in all positions. The hip was carefully dislocated. All trials we re removed. Final implant chosen was an Accolade TMZF size 3 with a 132-degree neck. A Biolox delt a ceramic V40 femoral head, 36 -2.5 was chosen as the final implant. This was impacted onto the fem oral neck without difficulty. Lesser troch to the center of the femoral head measured 54 mm. The hip was reduced and taken throug h a range of motion. The hip was stable in all positions. The hip was copiously irrigated with amanda rile saline. Previously tagged capsule and tendons were reapproximated to the posterolateral femur through 2 troc hanteric drill holes. The lateral fascial layer was reapproximated using interrupted #1 Vicryls. T he rest of the incision was closed in a layered fashion using 0 and 2-0 Vicryl's. Skin was closed u sing running 3-0 Monocryl and Dermabond. Sterile Adaptic, 4x4s, and paper tape were placed over the incision. The patient's anesthesia was reversed without difficulty. She was taken to the PACU in stable condi tion. Intended weightbearing will be weightbearing as tolerated with posterior hip precautions. In tended DVT prophylaxis will be Coumadin with a Lovenox bridge. [id number]/[facility] #: [id number]
[2016-08-29] MEDS: oxyCODONE/Acetamin 5/325 MG* TAB PO PRN ×5 (00:36→21:14)
[2016-08-29] MEDS: oxyCODONE TAB* 5 MG TAB PO PRN ×2 (03:31→09:42)
[2016-08-29] MEDS: Morphine INJ* 10 MG/ML 1 ML SYRINGE IV PRN (03:32)
[2016-08-29] MEDS: Levothyroxine TAB* 100 MCG TAB PO SCH (05:48)
[2016-08-29 06:55] LABS: Hematocrit 27 % (35-47)
--- NOTE | 2016-08-29 07:47 | PN ---
Progress Note - Progress Note SOAP: Subjective: Pt. reports severe pain overnight. Objective: LLE - dressing changed, inc c/d/i. distally nvi. Vital Signs: Temp Pulse Resp BP Pulse Ox 98.9 F 86 18 117/48 94 08/29/16 04:01 08/29/16 04:01 08/29/16 07:15 08/29/16 04:01 08/29/16 04:10 Laboratory Results - last 24 hr 08/29/16 08/29/16 06:13 06:13 Hgb 9.0 L Hct 27 L INR (Anticoag Therapy) 1.59 H Assessment: 86 yo F pod 2 s/p LTHA Plan: Severe pain - will check ap pelvis 4 mg coumadin tonight, lovenox dose today - hx of PE pt/ot plan d/c to PMRU or SNF
[2016-08-29] MEDS: Magnesium Hydroxide LIQ* 30 ML UDC PO SCH ×2 (08:42→20:18)
[2016-08-29] MEDS: Docusate CAP* 100 MG PO SCH ×2 (08:42→20:18)
[2016-08-29] MEDS: PRESERVISION AREDS PO SCH ×2 (08:42→20:18)
[2016-08-29] MEDS: Verapamil SR TAB* 240 MG PO SCH (08:42)
[2016-08-29] MEDS: Lisinopril TAB* 10 MG PO SCH (08:42)
[2016-08-29] MEDS: busPIRone TAB* 5 MG PO SCH ×2 (08:42→20:18)
--- NOTE | 2016-08-29 09:30 | RAD ---
HISTORY: Postop left hip arthroplasty, pain COMPARISONS: August 27, 2016 VIEWS: 1, Single frontal view of the pelvis FINDINGS: BONE DENSITY: Normal. BONES: The patient is status post left hip arthroplasty. On the single frontal projection, there is no appreciable hardware failure or osteolysis. JOINTS: The patient is status post left hip arthroplasty. There is moderate osteoarthritis of the right hip. ALIGNMENT: There is no dislocation. SOFT TISSUES: Unremarkable. OTHER FINDINGS: A hernia repair mesh is noted IMPRESSION: STATUS POST LEFT HIP ARTHROPLASTY.
--- NOTE | 2016-08-29 10:45 | PN ---
Subjective Date of Service: 08/29/16 Interval History: Patient seen and examined at bedside. Ms. Arciniega reports "terrible pain" overnight that did improve with morphine. Denies CP, SOB, abd pain, n/v. Family History: Unchanged from Admission Social History: Unchanged from Admission Past Medical History: Unchanged from Admission Objective Active Medications: Acetaminophen (Tylenol Tab*) 650 mg PO Q4H PRN PRN Reason: mild pain or fever Alprazolam (Xanax Tab*) 0.5 mg PO TID PRN PRN Reason: ANXIETY Bisacodyl (Dulcolax Supp*) 10 mg NC DAILY PRN PRN Reason: constipation Buspirone HCl (Buspar Tab*) 5 mg PO BID [facility] Last Admin: 08/29/16 08:42 Dose: 5 mg Diphenhydramine HCl (Benadryl Iv*) 12.5 mg IV Q6H PRN PRN Reason: PRURITIS Last Admin: 08/27/16 20:31 Dose: 12.5 mg Diphenhydramine HCl (Benadryl Po*) 25 mg PO Q6H PRN PRN Reason: INSOMNIA Docusate Sodium (Colace Cap*) 100 mg PO BID [facility] Last Admin: 08/29/16 08:42 Dose: 100 mg Enoxaparin Sodium (Lovenox(*)) 30 mg SUBCUT Q24H [facility] Last Admin: 08/28/16 12:36 Dose: 30 mg Lactated Ringer's (Lactated Ringers 1000 Ml Bag*) 1,000 mls @ 100 mls/hr IV PER RATE [facility] Last Admin: 08/28/16 01:53 Dose: 100 mls/hr Sodium Chloride (Ns 0.9% 1000 Ml*) 1,000 mls @ 100 mls/hr IV PER RATE [facility] Lactulose (Lactulose*) 30 ml PO Q6H PRN PRN Reason: constipation Levothyroxine Sodium (Synthroid Tab*) 100 mcg PO 0600 [facility] Last Admin: 08/29/16 05:48 Dose: 100 mcg Lisinopril (Prinivil Tab*) 20 mg PO QAM [facility] Last Admin: 08/29/16 08:42 Dose: 20 mg Magnesium Hydroxide (Milk Of Magnesia Liq*) 30 ml PO BID [facility] Last Admin: 08/29/16 08:42 Dose: 30 ml Morphine Sulfate (Morphine Inj (Syringe)*) 5 mg IV Q2H PRN PRN Reason: PAIN Last Admin: 08/29/16 03:32 Dose: 5 mg Multivitamins/Minerals (Preservision Areds(Multivitamins/Mineral)(Nf)) 1 cap PO BID [facility] Last Admin: 08/29/16 08:42 Dose: 1 cap Ondansetron HCl (Zofran Inj*) 4 mg IV Q6H PRN PRN Reason: nausea Ondansetron HCl (Zofran Tab*) 4 mg PO Q6H PRN PRN Reason: NAUSEA Oxycodone HCl (Roxycodone Tab*) 10 mg PO Q4H PRN PRN Reason: breakthrough pain Last Admin: 08/29/16 09:42 Dose: 10 mg Oxycodone/Acetaminophen (Percocet 5/325 Tab*) 1 tab PO Q3H PRN PRN Reason: PAIN - MODERATE Last Admin: 08/28/16 04:21 Dose: 1 tab Oxycodone/Acetaminophen (Percocet 5/325 Tab*) 2 tab PO Q3H PRN PRN Reason: PAIN - MODERATE Last Admin: 08/29/16 07:15 Dose: 2 tab Paroxetine HCl (Paxil Tab*) 30 mg PO QPM [facility] Last Admin: 08/28/16 17:38 Dose: 30 mg Polyethylene Glycol/Electrolytes (Miralax*) 17 gm PO DAILY PRN PRN Reason: Constipation Verapamil HCl (Calan Sr Tab*) 240 mg PO BID [facility] Last Admin: 08/29/16 08:42 Dose: 240 mg Warfarin Sodium (Coumadin Tab(*)) 4 mg PO DAILY@1700 ONE PRN Reason: Protocol Stop: 08/29/16 17:01 Vital Signs 08/28/16 08/28/16 08/28/16 12:32 12:35 14:35 Temperature 97.6 F Pulse Rate 76 Respiratory 18 20 18 Rate Blood Pressure 149/55 (mmHg) O2 Sat by Pulse 95 Oximetry 08/28/16 08/28/16 08/28/16 15:21 15:54 17:37 Temperature 98.4 F Pulse Rate 68 Respiratory 18 18 Rate Blood Pressure 102/43 (mmHg) O2 Sat by Pulse 95 95 Oximetry 08/28/16 08/28/16 08/28/16 17:43 18:43 19:37 Temperature Pulse Rate Respiratory 18 16 16 Rate Blood Pressure (mmHg) O2 Sat by Pulse Oximetry 08/28/16 08/28/16 08/28/16 20:15 20:25 21:10 Temperature 98.2 F Pulse Rate 82 Respiratory 16 16 16 Rate Blood Pressure 137/45 (mmHg) O2 Sat by Pulse 94 Oximetry 08/28/16 08/28/16 08/29/16 23:10 23:56 00:36 Temperature 97.7 F Pulse Rate 84 Respiratory 16 16 22 Rate Blood Pressure 117/51 (mmHg) O2 Sat by Pulse 96 Oximetry 08/29/16 08/29/16 08/29/16 02:36 03:31 03:32 Temperature Pulse Rate Respiratory 16 18 18 Rate Blood Pressure (mmHg) O2 Sat by Pulse Oximetry 08/29/16 08/29/16 08/29/16 04:01 04:10 04:32 Temperature 98.9 F Pulse Rate 86 Respiratory 16 16 Rate Blood Pressure 117/48 (mmHg) O2 Sat by Pulse 92 94 Oximetry 08/29/16 08/29/16 08/29/16 05:31 07:15 07:36 Temperature 98.0 F Pulse Rate 84 Respiratory 16 18 16 Rate Blood Pressure 121/54 (mmHg) O2 Sat by Pulse 95 Oximetry 08/29/16 08/29/16 08/29/16 07:58 08:00 09:15 Temperature Pulse Rate Respiratory 16 16 18 Rate Blood Pressure (mmHg) O2 Sat by Pulse 95 Oximetry 08/29/16 08/29/16 08/29/16 09:42 10:14 10:17 Temperature Pulse Rate 65 Respiratory 18 Rate Blood Pressure 94/38 86/39 (mmHg) O2 Sat by Pulse Oximetry 08/29/16 08/29/16 10:23 10:36 Temperature Pulse Rate 65 Respiratory Rate Blood Pressure 95/37 86/40 (mmHg) O2 Sat by Pulse Oximetry Oxygen Devices in Use Now: None Appearance: Older female patient, lying in bed, NAD Eyes: PERRLA Ears/Nose/Mouth/Throat: Mucous Membranes Moist Neck: NL Appearance and Movements; NL JVP Respiratory: Symmetrical Chest Expansion and Respiratory Effort, Clear to Auscultation Cardiovascular: NL Sounds; No Murmurs; No JVD, RRR Abdominal: NL Sounds; No Tenderness; No Distention Extremities: - - left hip Neurological: Alert and Oriented x 3 Lines/Tubes/Other Access: Clean, Dry and Intact Peripheral IV Nutrition: Taking PO's Result Diagrams: 08/29/16 06:13 08/28/16 05:50 Assess/Plan/Problems-Billing Assessment: Ms. 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 - Patient Problems (1) Status post total replacement of left hip Code(s): Z96.642 - PRESENCE OF LEFT ARTIFICIAL HIP JOINT Comment: POD #2, management per ortho PT/OT HH stable, continue to follow Pain management (2) HTN (hypertension) Code(s): I10 - ESSENTIAL (PRIMARY) HYPERTENSION Comment: Hypotensive. Hold antihypertensives, suspect secondary to morphine. Will give a liter of fluid and re-evaluate. (3) Hypothyroidism Code(s): E03.9 - HYPOTHYROIDISM, UNSPECIFIED Comment: Continue levothyroxine. (4) Migraines Code(s): G43.909 - MIGRAINE, UNSP, NOT INTRACTABLE, WITHOUT STATUS MIGRAINOSUS Comment: Not an active issue PRN acetaminophen available (5) Depression with anxiety Comment: Stable Continue buspirone, paroxetine, prn alprazolam (6) Macular degeneration Code(s): H35.30 - UNSPECIFIED MACULAR DEGENERATION Comment: Continue AREDS multivitamin. (7) DVT prophylaxis Code(s): [id number] - Comment: Per ortho Warfarin and enoxaparin Status and Disposition: Inpatient admission. Dispo per ortho. Hospitalist co-medical management. Will follow with you.
[2016-08-29] MEDS: NS 0.9% 1000 ML* 1,000 ML IV SCH ×3 (10:49→16:27)
[2016-08-29] MEDS: Enoxaparin(*) 30 MG/0.3 ML SYR SUBCUT SCH (12:40)
[2016-08-29] MEDS ORDERED: Warfarin TAB(*) 4 MG PO ONE (17:00)
[2016-08-29] MEDS: PARoxetine HCL TAB* 10 MG PO SCH (17:17)
[2016-08-30] MEDS: oxyCODONE/Acetamin 5/325 MG* TAB PO PRN ×2 (02:43→08:00)
[2016-08-30] MEDS: Levothyroxine TAB* 100 MCG TAB PO SCH (05:24)
[2016-08-30 05:43] LABS: Hematocrit 28 % (35-47); Hemoglobin 9.3 g/dl (12.0-16.0)
[2016-08-30] MEDS: Docusate CAP* 100 MG PO SCH (07:53)
[2016-08-30] MEDS: Magnesium Hydroxide LIQ* 30 ML UDC PO SCH (07:53)
[2016-08-30] MEDS: Lisinopril TAB* 10 MG PO SCH ×2 (08:01→08:13)
[2016-08-30] MEDS: busPIRone TAB* 5 MG PO SCH (08:01)
--- NOTE | 2016-08-30 08:45 | PN ---
Subjective Date of Service: 08/30/16 Interval History: Patient seen and examined at bedside. She continues to endorse pain to the left hip, greater than she anticipated prior to having surgery. D Denies CP, SOB, n/v. Participating in PT. She feels frustrated that she is not feeling better faster. Looking forward to [facility] rehab. Family History: Unchanged from Admission Social History: Unchanged from Admission Past Medical History: Unchanged from Admission Objective Active Medications: Acetaminophen (Tylenol Tab*) 650 mg PO Q4H PRN PRN Reason: mild pain or fever Alprazolam (Xanax Tab*) 0.5 mg PO TID PRN PRN Reason: ANXIETY Bisacodyl (Dulcolax Supp*) 10 mg [place] DAILY PRN PRN Reason: constipation Buspirone HCl (Buspar Tab*) 5 mg PO BID [facility] Last Admin: 08/30/16 08:01 Dose: 5 mg Diphenhydramine HCl (Benadryl Iv*) 12.5 mg IV Q6H PRN PRN Reason: PRURITIS Last Admin: 08/27/16 20:31 Dose: 12.5 mg Diphenhydramine HCl (Benadryl Po*) 25 mg PO Q6H PRN PRN Reason: INSOMNIA Docusate Sodium (Colace Cap*) 100 mg PO BID [facility] Last Admin: 08/30/16 07:53 Dose: Not Given Enoxaparin Sodium (Lovenox(*)) 30 mg SUBCUT Q24H [facility] Last Admin: 08/29/16 12:40 Dose: 30 mg Sodium Chloride (Ns 0.9% 1000 Ml*) 1,000 mls @ 100 mls/hr IV PER RATE [facility] Stop: 08/30/16 20:44 Last Admin: 08/29/16 16:27 Dose: 100 mls/hr Lactulose (Lactulose*) 30 ml PO Q6H PRN PRN Reason: constipation Levothyroxine Sodium (Synthroid Tab*) 100 mcg PO 0600 [facility] Last Admin: 08/30/16 05:24 Dose: 100 mcg Lisinopril (Prinivil Tab*) 20 mg PO DAILY [facility] Last Admin: 08/30/16 08:13 Dose: Not Given Magnesium Hydroxide (Milk Of Magnesia Liq*) 30 ml PO BID [facility] Last Admin: 08/30/16 07:53 Dose: Not Given Morphine Sulfate (Morphine Inj (Syringe)*) 5 mg IV Q2H PRN PRN Reason: PAIN Last Admin: 08/29/16 03:32 Dose: 5 mg Multivitamins/Minerals (Preservision Areds(Multivitamins/Mineral)(Nf)) 1 cap PO BID [facility] Last Admin: 08/29/16 20:18 Dose: 1 cap Ondansetron HCl (Zofran Inj*) 4 mg IV Q6H PRN PRN Reason: nausea Ondansetron HCl (Zofran Tab*) 4 mg PO Q6H PRN PRN Reason: NAUSEA Oxycodone HCl (Roxycodone Tab*) 10 mg PO Q4H PRN PRN Reason: breakthrough pain Last Admin: 08/29/16 09:42 Dose: 10 mg Oxycodone/Acetaminophen (Percocet 5/325 Tab*) 1 tab PO Q3H PRN PRN Reason: PAIN - MODERATE Last Admin: 08/30/16 08:00 Dose: 1 tab Oxycodone/Acetaminophen (Percocet 5/325 Tab*) 2 tab PO Q3H PRN PRN Reason: PAIN - MODERATE Last Admin: 08/29/16 07:15 Dose: 2 tab Paroxetine HCl (Paxil Tab*) 30 mg PO QPM [facility] Last Admin: 08/29/16 17:17 Dose: 30 mg Polyethylene Glycol/Electrolytes (Miralax*) 17 gm PO DAILY PRN PRN Reason: Constipation Verapamil HCl (Calan Tab*) 240 mg PO BID [facility] Vital Signs 08/29/16 08/29/16 08/29/16 09:15 09:42 10:14 Temperature Pulse Rate Respiratory 18 18 Rate Blood Pressure 94/38 (mmHg) O2 Sat by Pulse Oximetry 08/29/16 08/29/16 08/29/16 10:17 10:23 10:36 Temperature Pulse Rate 65 65 Respiratory Rate Blood Pressure 86/39 95/37 86/40 (mmHg) O2 Sat by Pulse Oximetry 08/29/16 08/29/16 08/29/16 11:20 11:27 11:42 Temperature 99.2 F Pulse Rate 67 Respiratory 16 18 Rate Blood Pressure 100/44 93/41 (mmHg) O2 Sat by Pulse 98 Oximetry 05/25/17 05/25/17 05/25/17 14:17 14:18 15:13 Temperature 98.2 F Pulse Rate 64 Respiratory 16 14 Rate Blood Pressure 114/50 112/41 (mmHg) O2 Sat by Pulse 90 Oximetry 08/29/16 08/29/16 08/29/16 16:00 16:14 16:18 Temperature Pulse Rate 71 Respiratory 16 Rate Blood Pressure (mmHg) O2 Sat by Pulse 97 97 Oximetry 08/29/16 08/29/16 08/29/16 17:17 17:22 19:17 Temperature Pulse Rate Respiratory 16 18 Rate Blood Pressure (mmHg) O2 Sat by Pulse 97 Oximetry 08/29/16 08/29/16 08/29/16 19:36 20:30 21:14 Temperature 99.8 F Pulse Rate 70 Respiratory 18 18 18 Rate Blood Pressure 108/36 (mmHg) O2 Sat by Pulse 92 Oximetry 08/29/16 08/29/16 08/30/16 23:14 23:25 02:43 Temperature 98.5 F Pulse Rate 80 Respiratory 16 14 18 Rate Blood Pressure 119/43 (mmHg) O2 Sat by Pulse 94 Oximetry 08/30/16 08/30/16 08/30/16 03:05 04:43 07:15 Temperature 98.2 F 98.2 F Pulse Rate 84 84 Respiratory 16 16 16 Rate Blood Pressure 141/51 148/60 (mmHg) O2 Sat by Pulse 94 96 Oximetry 08/30/16 08/30/16 07:47 08:00 Temperature Pulse Rate Respiratory 16 16 Rate Blood Pressure (mmHg) O2 Sat by Pulse 96 Oximetry Oxygen Devices in Use Now: None Appearance: Older female, lying in bed, NAD Eyes: PERRLA Ears/Nose/Mouth/Throat: Mucous Membranes Moist Neck: NL Appearance and Movements; NL JVP Respiratory: Symmetrical Chest Expansion and Respiratory Effort, Clear to Auscultation Cardiovascular: NL Sounds; No Murmurs; No JVD, RRR Abdominal: NL Sounds; No Tenderness; No Distention Extremities: - - left hip incision c/d/i, moderate, healing ecchymosis to lateral left femur, distal pulses 2+ Neurological: Alert and Oriented x 3 Lines/Tubes/Other Access: Clean, Dry and Intact Peripheral IV Result Diagrams: 08/30/16 05:21 08/28/16 05:50 Assess/Plan/Problems-Billing Assessment: Ms. 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 - Patient Problems (1) Status post total replacement of left hip Code(s): Z96.642 - PRESENCE OF LEFT ARTIFICIAL HIP JOINT Comment: POD #3, management per ortho PT/OT HH stable, continue to follow Pain management (2) HTN (hypertension) Code(s): I10 - ESSENTIAL (PRIMARY) HYPERTENSION Comment: BP trending up Restart home lisinopril and verapamil. Suspect hypotension secondary to anesthesia and narcotics. (3) Hypothyroidism Code(s): E03.9 - HYPOTHYROIDISM, UNSPECIFIED Comment: Continue levothyroxine. (4) Migraines Code(s): G43.909 - MIGRAINE, UNSP, NOT INTRACTABLE, WITHOUT STATUS MIGRAINOSUS Comment: Not an active issue PRN acetaminophen available (5) Depression with anxiety Comment: Stable Continue buspirone, paroxetine, prn alprazolam (6) Macular degeneration Code(s): H35.30 - UNSPECIFIED MACULAR DEGENERATION Comment: Continue AREDS multivitamin. (7) DVT prophylaxis Code(s): BLQ4663 - Comment: Per ortho Warfarin and enoxaparin Status and Disposition: Inpatient admission. Dispo per ortho. Hospitalist co-medical management.
[2016-08-30] MEDS ORDERED: Verapamil TAB* 120 MG PO SCH (09:00)
[2016-08-30] MEDS: PRESERVISION AREDS PO SCH (09:01)
[2016-08-30] MEDS: oxyCODONE TAB* 5 MG TAB PO PRN (10:08)
--- NOTE | 2016-08-30 10:35 | PN ---
Progress Note - Progress Note SOAP: Subjective: 86 y/o female s/p LEFT NADINE with DR Vang 08/27/2016. Patient c/o pain in hip, did not think procedure would be this painful, pain into groin and thigh with movement. VSS afebrile overnight, sitting in chair comfortably, no pain @ rest. Objective: General- sitting comfortably, NAD MSK- Dressing removed, Incision C/D/I, no drainage noted, moderate ecchymosis around incision site, new dressing placed. PT 2+ b/l, minimel non-pitting edema b/l LEs neg homans b/l, + DF/PF b/l LEs Laboratory Results - last 24 hr 08/30/16 08/30/16 05:21 05:21 Hgb 9.3 L Hct 28 L INR (Anticoag Therapy) 2.12 H Vital Signs Temp 98.2 F 08/30/16 07:15 Pulse 84 08/30/16 07:15 Resp 16 08/30/16 10:08 BP 148/60 08/30/16 07:15 Pulse Ox 96 08/30/16 07:47 Intake & Output 08/29/16 08/30/16 08/30/16 18:59 06:59 18:59 Intake Total 2025 1173 345 Output Total 800 850 450 Balance 1226 323 -105 Intake: IV Fluids 906 973 ns 906 973 Oral 1120 200 345 Output: Urine 800 850 450 Other: # Bowel Movements 1 Estimated Stool Amount Small Medium Assessment: 86 y/o female s/p LEFT NADINE with DR Vang 08/27/2016 Plan: - DVT prophylaxis- INR theraputic, hold lovenox today, continue coumadin at [facility] - D/C to [facility] rehab today - Continue pain medication - Continue PT - Follow up with Dr. Vang within 10 days - OK to retart home medication- BP stable. Active Medications Generic Name Dose Route Start Last Admin Trade Name Freq PRN Reason Stop Dose Admin Acetaminophen 650 mg 08/27/16 12:19 Tylenol Tab* PO Q4H PRN mild pain or fever Alprazolam 0.5 mg 08/27/16 12:29 Xanax Tab* PO TID PRN ANXIETY Bisacodyl 10 mg 08/27/16 12:25 Dulcolax Supp* MT DAILY PRN constipation Buspirone HCl 5 mg 08/27/16 21:00 08/30/16 08:01 Buspar Tab* PO 5 mg BID STACEY Administration Diphenhydramine HCl 12.5 mg 08/27/16 12:25 08/27/16 20:31 Benadryl Iv* IV 12.5 mg Q6H PRN Administration PRURITIS Diphenhydramine HCl 25 mg 08/27/16 12:25 Benadryl Po* PO Q6H PRN INSOMNIA Docusate Sodium 100 mg 08/27/16 21:00 08/30/16 07:53 Colace Cap* PO Not Given BID STACEY Enoxaparin Sodium 30 mg 08/28/16 13:00 08/29/16 12:40 Lovenox(*) SUBCUT 30 mg Q24H SATCEY Administration Sodium Chloride 1,000 mls @ 100 mls/hr 08/29/16 10:45 08/29/16 16:27 Ns 0.9% 1000 Ml* IV 08/30/16 20:44 100 mls/hr PER RATE STACEY Administration Lactulose 30 ml 08/27/16 12:25 Lactulose* PO Q6H PRN constipation Levothyroxine Sodium 100 mcg 08/28/16 06:00 08/30/16 05:24 Synthroid Tab* PO 100 mcg 0600 STACEY Administration Lisinopril 20 mg 08/30/16 08:00 08/30/16 08:13 Prinivil Tab* PO Not Given DAILY STACEY Magnesium Hydroxide 30 ml 08/27/16 21:00 08/30/16 07:53 Milk Of Magnesia Liq* PO Not Given BID [facility] Morphine Sulfate 5 mg 08/27/16 12:25 08/29/16 03:32 Morphine Inj (Syringe)* IV 5 mg Q2H PRN Administration PAIN Multivitamins/Minerals 1 cap 08/28/16 21:00 08/30/16 09:01 Preservision Areds(Multivitamins/Mineral)(Nf) PO 1 cap BID [facility] Administration Ondansetron HCl 4 mg 08/27/16 12:25 Zofran Inj* IV Q6H PRN nausea Ondansetron HCl 4 mg 08/27/16 12:25 Zofran Tab* PO Q6H PRN NAUSEA Oxycodone HCl 10 mg 08/27/16 12:25 08/30/16 10:08 Roxycodone Tab* PO 10 mg Q4H PRN Administration breakthrough pain Oxycodone/Acetaminophen 1 tab 08/27/16 12:25 08/30/16 08:00 Percocet 5/325 Tab* PO 1 tab Q3H PRN Administration PAIN - MODERATE Oxycodone/Acetaminophen 2 tab 08/27/16 12:32 08/29/16 07:15 Percocet 5/325 Tab* PO 2 tab Q3H PRN Administration PAIN - MODERATE Paroxetine HCl 30 mg 08/27/16 18:00 08/29/16 17:17 Paxil Tab* PO 30 mg QPM [facility]ACE[facility] Administration Polyethylene Glycol/Electrolytes 17 gm 08/27/16 12:25 Miralax* PO DAILY PRN Constipation Verapamil HCl 240 mg 08/30/16 09:00 08/30/16 09:01 Calan Tab* PO 240 mg BID STACEY Administration
[2016-08-30 11:22] VITALS: BP 115/49
--- NOTE | 2016-08-31 01:32 | DS ---
DISCHARGE SUMMARY: DATE OF ADMISSION: 08/27/16 DATE OF DISCHARGE: 08/30/16 CHIEF COMPLAINT: 1. Left hip pain. 2. History of pulmonary embolism. 3. History of breast cancer. 4. Migraines. 5. Depression. 6. Hypothyroidism. 7. Macular degeneration. 8. Status post TIA. 9. Postpolio syndrome. 10. Rheumatic fever. DISCHARGE DIAGNOSES: 1. Status post left total hip arthroplasty. 2. History of pulmonary embolism. 3. History of breast cancer. 4. History of migraines. 5. Depression. 6. Hypothyroidism. 7. Macular degeneration. 8. History of TIA. 9. Post-polio syndrome. 10. History of rheumatic fever. PROCEDURE: Left total hip arthroplasty. CONSULTATIONS: 1. Physical medicine. 2. Occupational Therapy. 3. Hospital medicine. BRIEF HISTORY: Ms. 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 Latanya Vang. HOSPITAL COURSE: The patient was admitted to [facility] on 08/27/16, where she underwent an uncomplicated left total hip arthroplasty. Postoperatively, she recovered on the Surgical Short -Stay Unit. On postoperative day 2, her Condon was removed and she was voiding on her own without di fficulty. Her pain was controlled with p.o. Percocet. Her home medications were held until postope rative day 3 due to hypotension. Her labs and vital signs remained stable. She was able to bear we ight as tolerated on the left lower extremity. She advanced appropriately with physical therapy and occupational therapy. Her DVT prophylaxis was managed with Lovenox and Coumadin until she reached a therapeutic INR. By postoperative day 3, she was orthopedically and medically stable to be discha rged to [facility]. PHYSICAL EXAMINATION: General: Well-appearing, in no acute distress, alert and oriented. Mood and affect appropriate. Vital signs: On the day of discharge, temperature 98.2, pulse 84, respiration 16, blood pressure 140/60, and pulse oxygenation 69% on room air. The dressing was removed on the left hip with the incision being clear, dry, and intact. No drainage noted. Moderate ecchymosis ar ound the incision site. New dressing was placed. Posterior tibial pulses 2+ bilaterally. Minimal nonpitting edema, bilateral lower extremities. Negative Homans sign bilaterally. Positive dorsifle xion and plantar flexion, bilateral lower extremities. Intact to light touch, bilateral lower extre mities. DIAGNOSTIC STUDIES/LAB DATA: Laboratory data on the date of discharge: H and H is 9.3 and 28. INR of 2.12. Radiographs: Postoperative films show a left hip prosthesis in good placement. DISCHARGE MEDICATIONS: Include: 1. Xanax 0.5 mg p.o. t.i.d. p.r.n. 2. Tylenol 325 mg 1 to 2 tablets q.4 hours p.r.n. Not to exceed 4000 mg in a 24- hour period. 3. Colace 100 mg p.o. b.i.d. 4. Synthroid 100 mcg p.o. q.a.m. 5. Lisinopril 20 mg p.o. daily. 6. Paxil 30 mg p.o. at bedtime. 7. BuSpar 5 mg p.o. b.i.d. 8. Verapamil 240 mg p.o. b.i.d. 9. Coumadin 2 mg tablets 1 to 2 tablets everyday at 5 p.m. On 08/30/16 take 2 mg, on 08/31/16 take 4 mg, and on 09/01/16 take 2 mg and INR drawn on 09/02/16. CONDITION ON DISCHARGE: Stable. DISCHARGE INSTRUCTIONS: Ms. Arciniega is a very pleasant 86-year-old female status post left total hip replacement by Dr. Latanya Vang, which was uncomplicated. She is orthopedically and medically stab le to go to [facility]. Her labs and vital signs are stable. She will restart er home medications. She will take her Coumadin as mentioned above. She will have her INR draws ev gunjan Friday and . She will remain weightbearing as tolerated. She will continue to work wit physical therapy. She will take Percocet one-half tablet to two tablets as needed for pain contro l and Colace up to 3 times a day for constipation. She will follow up with Dr. Vang in approximate ly 10 to 14 days for incision check. She was instructed to go immediately to the ER should she deve lop chest pain or shortness of breath. Should she develop fever, increasing pain, or redness; she i s to call the office immediately. Monik is instructed to continue to monitor her blood pressures d ue to hypotension postoperative day 1 and 2. RINA DE LA FUENTE [id number]/[facility] #: [id number]
== END 2016-08-30 12:25 | DRG 470 ==
LOC: AA 07:17 → SSU 14:09
PROVIDERS: ADMIT Orthopaedic Surgery Adult Reconstructive Orthopaedic Surgery; ATTEND Orthopaedic Surgery Adult Reconstructive Orthopaedic Surgery
PROC: 0SRB04A Replacement of Left Hip Joint with Ceramic on Polyethylene Synthetic Substitute, Uncemented, Open Approach (ICD-10-PCS; principal; 2016-08-27 09:15)
DX: M17.12 Unilateral primary osteoarthritis, left knee (principal); E88.81 Metabolic syndrome and other insulin resistance; I10 Essential (primary) hypertension; Z96.653 Presence of artificial knee joint, bilateral; Z98.49 Cataract extraction status, unspecified eye; H35.30 Unspecified macular degeneration; E03.9 Hypothyroidism, unspecified; Z86.711 Personal history of pulmonary embolism; M25.752 Osteophyte, left hip; M85.80 Other specified disorders of bone density and structure, unspecified site; Z85.3 Personal history of malignant neoplasm of breast; Z86.73 Personal history of transient ischemic attack (TIA), and cerebral infarction without residual deficits; Z86.12 Personal history of poliomyelitis; Z88.8 Allergy status to other drugs, medicaments and biological substances; F41.8 Other specified anxiety disorders; Z82.49 Family history of ischemic heart disease and other diseases of the circulatory system; Z83.3 Family history of diabetes mellitus; Z81.8 Family history of other mental and behavioral disorders; Z80.8 Family history of malignant neoplasm of other organs or systems; Z85.038 Personal history of other malignant neoplasm of large intestine; E66.9 Obesity, unspecified; Z68.34 Body mass index [BMI] 34.0-34.9, adult; G43.109 Migraine with aura, not intractable, without status migrainosus; F43.21 Adjustment disorder with depressed mood
CPT/HCPCS: 36415; 72170; 80048; 85014; 85018; 85610; 94760; A9270-GY; C1713; C1776; J0690; J1100; J1170; J1200; J1650; J1885; J2250; J2270; J2405; J2704; J3010

== ENCOUNTER 2016-12-05 22:42 | Inpatient (IN) | payer MEDICARE ==
[2016-12-05] MEDS ORDERED: Ondansetron INJ* 2 MG/ML VIAL IV ONE (23:06)
[2016-12-05] MEDS ORDERED: NS 0.9% 1000 ML* 1,000 ML IV ONE (23:06)
[2016-12-05] MEDS ORDERED: Morphine INJ* 4 MG/ML 1 ML SYRINGE IV ONE (23:06)
--- NOTE | 2016-12-05 23:28 | ED ---
Ajit Milian Rebecca, scribed for Laureano Shelley MD on 12/05/16 at 2308 . Abdominal Pain/Female - HPI Summary HPI Summary: Pt is an 86 y/o F who presents to ED c/o diffuse abdominal pain. Pain began gradually this afternoon and worsened a few hours ago. Pain is currently severe , ranked 10/10 and radiates to the back. Sx aggravated by palpation, alleviated by nothing. Additionally c/o abdominal distention and nausea. States that her abdomen "just blew up" and that it is "hard as a rock." Denies V/D. PMHx "twisted colon" 5 years ago during which she experienced similar symptoms. - History of Current Complaint Chief Complaint: EDAbdPain Stated Complaint: BLOATED/HARD STOMACH Time Seen by Provider: 12/05/16 23:00 Hx Obtained From: Patient Onset/Duration: Gradual Onset, Still Present, Worse Since - a few hours ago Severity Currently: Severe Pain Intensity: 10 Pain Scale Used: 0-10 Numeric Location: Diffuse Radiates: Yes Radiates to: Back Aggravating Factor(s): Other: - Palpation Alleviating Factor(s): Nothing Associated Signs and Symptoms: Positive: Nausea, Other: - Abdominal distention. Negative: Vomiting, Diarrhea Simlar Episode/Dx as:: "twisted colon" 5 years ago Allergies/Adverse Reactions: Allergies Allergy/AdvReac Type Severity Reaction Status Date / Time Sumatriptan [From Imitrex] Allergy Hallucinati Verified 12/05/16 23:13 ons seasonal/environmental Allergy Runny Nose Uncoded 12/05/16 23:13 allergies PMH/Surg Hx/FS Hx/Imm Hx Endocrine/Hematology History: Reports: Hx Thyroid Disease - had 1/2 thyroid removed, Other Endocrine/Hematological Disorders - hx cancer - breast, colon, melanoma Denies: Hx Bone Marrow Disease, Hx Diabetes, Hx Sickle Cell Disease, Hx Anemia Cardiovascular History: Reports: Hx Angina, Hx Deep Vein Thrombosis - PE May 2010, on coumadin approx 6 mos, Hx Hypertension, Hx Rheumatic Fever - A CHILD , Other Cardiovascular Problems/Disorders - PULMONARY EMBOLISMS 3 YEARS AGO Denies: Hx Congestive Heart Failure, Hx Pacemaker/ICD Respiratory History: Reports: Hx Pulmonary Embolism - 2008 Denies: Hx Asthma, Hx Chronic Obstructive Pulmonary Disease (COPD) GI History: Reports: Hx Gastroesophageal Reflux Disease, Other GI Disorders - diarrhea, constipation Denies: Hx Ulcer History: Reports: Other Problems/Disorders - incontinence Denies: Hx Renal Disease Musculoskeletal History: Reports: Hx Arthritis - OSTEOARTHRITIS KNEES, Hx Back Problems, Hx Bursitis, Other Musculoskeletal History - chronic pain - back, knees Sensory History: Reports: Hx Cataracts - removed, Hx Contacts or Glasses, Hx Macular Degeneration, Hx Hearing Problem Denies: Hx Glaucoma, Hx Hearing Aid Opthamlomology History: Reports: Hx Cataracts - removed, Hx Contacts or Glasses , Hx Macular Degeneration Denies: Hx Glaucoma Neurological History: Reports: Hx Headaches, Hx Migraine, Other Neuro Impairments/Disorders - HX POLIO - PAIN CLINIC PT Psychiatric History: Reports: Hx Anxiety - ON MEDS, Hx Depression - ON MEDS Denies: Hx Panic Disorder, Other Psychiatric Issues/Disorders - Cancer History Cancer Type, Location and Year: Rt BREAST - 2xs LUMPECTOMY Hx Chemotherapy: No Hx Radiation Therapy: Yes - Surgical History Surgery Procedure, Year, and Place: HYSTERECTOMY 1972;. RIGHT BREAST LUMPECTOMY x2 1999,. COLON RESECTION 2004,. illeostomy placement and reversal 2004 & 2005,. THYROIDECTOMY 1984 (04/08),. left THR. APPENDECTOMY,. TONSILS AND ADENOIDS,. BILATERAL total knee ,. BILATERAL CATARACTS 2000,. abdominal hernia 2006. LT TOTAL HIP Hx Anesthesia Reactions: Yes - N/V Infectious Disease History: Reports: Hx Shingles - HX SHINGLES Denies: Hx Clostridium Difficile, Hx Hepatitis, Hx Human Immunodeficiency Virus (HIV), Hx of Known/Suspected MRSA, Hx Tuberculosis, Hx Known/Suspected VRE , Hx Known/Suspected VRSA, History Other Infectious Disease, Traveled Outside the [place] in Last 30 Days - Family History Known Family History: Positive: Cardiac Disease - Mother and brother. - Social History Alcohol Use: Occasionally Alcohol Amount: 1-2 drinks/month Hx Substance Use: No Substance Use Type: Reports: None Hx Tobacco Use: No Smoking Status (MU): Never Smoked Tobacco Amount Used/How Often: 5 CIGARETTES A DAY/ 2 YRS Length of Time of Smoking/Using Tobacco: 2 YRS Have You Smoked in the Last Year: No Review of Systems Negative: Fever Positive: Abdominal Pain - diffuse with radiation to the back, Nausea, Other - Abdominal distention. Negative: Vomiting, Diarrhea All Other Systems Reviewed And Are Negative: Yes Physical Exam Triage Information Reviewed: Yes Vital Signs On Initial Exam: Initial Vitals Temp Pulse Resp BP Pulse Ox 98.7 F 84 20 132/74 99 12/05/16 22:51 12/05/16 22:51 12/05/16 22:51 12/05/16 22:51 12/05/16 22:51 Vital Signs Reviewed: Yes Appearance: Positive: Well-Appearing, Pain Distress - moderate diffuse abd tenderness Skin: Positive: Skin Color Reflects Adequate Perfusion Head/Face: Positive: Normal Head/Face Inspection Eyes: Positive: JANES ENT: Positive: Hearing grossly normal Neck: Positive: Supple Respiratory/Lung Sounds: Positive: Clear to Auscultation, Breath Sounds Present Cardiovascular: Positive: RRR Abdomen Description: Positive: Soft, Distended, Other: - mild/mod diffuse abd tendeness Bowel Sounds: Positive: Hypoactive Musculoskeletal: Positive: Strength/ROM Intact Neurological: Positive: Alert, Oriented to Person Place, Time Psychiatric: Positive: Affect/Mood Appropriate Diagnostics - Vital Signs Vital Signs Temp Pulse Resp BP Pulse Ox 12/05/16 22:51 98.7 F 84 20 132/74 99 - Laboratory Result Diagrams: 12/06/16 00:05 12/06/16 00:05 Lab Statement: Any lab studies that have been ordered have been reviewed, and results considered in the medical decision making process. - CT CT Abd/Pel CT Interpretation: Positive (See Comments) - Low-grade small bowel obstruction at the level of a anastomosis with the cecum. ED physician reviewed this radiology report and agrees. CT Interpretation Completed By: Radiologist Re-Evaluation - Re-Evaluation First Eval Re-Evaluation Time: 02:19 Comment: Pt informed of admission. Abdominal Pain Fem Course/Dx - Course Course Of Treatment: Pt is an 86 y/o F who presents to ED c/o diffuse abdominal pain since this afternoon, worse a few hours ago. Pain is currently severe, ranked 10/10 and radiates to the back. Sx aggravated by palpation. Additionally c/o abdominal distention and nausea. States that her abdomen "just blew up" and that it is "hard as a rock." Denies V/D. PMHx "twisted colon" 5 years ago during which she experienced similar symptoms. CT Abd/Pel reveals a lw-grade small bowel obstruction at the level of a anastomosis with the cecum. In the ED course, the pt received morphine and zofran. Discussed care of pt with Dr. Mathur who accepts pt for admission. Pt will be admitted with Dx of SBO. She understands and agrees. Elevated BP noted and advised to f/u with PCP. - Diagnoses Provider Diagnoses: Small bowel obstruction - Provider Notifications Discussed Care Of Patient With: Brijesh Mathur Time Discussed With Above Provider: 02:08 Instructed by Provider To: Other - Accepts pt for admission. Discharge - Discharge Plan Condition: Fair Disposition: ADMITTED TO [facility] Referrals: Malcolm De La Torre DO [Primary Care Provider] - The documentation as recorded by the Ajit garcia Rebecca accurately reflects the service I personally performed and the decisions made by , Laureano Shelley MD.
[2016-12-06 00:18] LABS: Hematocrit 39 % (35-47); Hemoglobin 12.9 g/dl (12.0-16.0); Mean Corpuscular HGB Conc 33 g/dl (31-36); Mean Corpuscular Hemoglobin 28 pg (27-31); Mean Corpuscular Volume 84 fL (80-97); Mean Platelet Volume 9 um3 (7.4-10.4); Red Blood Count 4.62 10^6/ul (4.0-5.4); Red Cell Distribution Width 18 % (10.5-15); White Blood Count 8.9 10^3/ul (3.5-10.8)
[2016-12-06 00:34] LABS: Albumin 4.2 g/dL (3.2-5.2); BUN/Creatinine Ratio 36.7 (8-20); C Reactive Protein 1.01 mg/L (< 5.00); Calcium 9.8 mg/dL (8.6-10.3); EGFR African American 76.7 (>60); EGFR Non-African American 59.7 (>60); Globulin 3.1 g/dL (2-4); Magnesium 2.2 mg/dL (1.9-2.7); Potassium 3.9 mmol/L (3.5-5.0); Total Bilirubin 0.4 mg/dL (0.2-1.0); Total Protein 7.3 g/dL (6.4-8.9)
[2016-12-06] MEDS ORDERED: Ondansetron INJ* 2 MG/ML VIAL ONE (00:52)
[2016-12-06] MEDS ORDERED: Morphine INJ* 4 MG/ML 1 ML SYRINGE IV ONE (00:57)
[2016-12-06] MEDS ORDERED: Morphine INJ* 4 MG/ML 1 ML SYRINGE ONE (00:59)
[2016-12-06] MEDS ORDERED: Iodixanol* (CONTRAST) 320 MG/ML 100 ML SDV IV ONE (01:30)
[2016-12-06] MEDS ORDERED: Morphine INJ* 2 MG/ML 1 ML SYRINGE ONE (03:16)
[2016-12-06] MEDS ORDERED: Morphine INJ* 2 MG/ML 1 ML SYRINGE IV ONE ×2 (03:21→08:15)
[2016-12-06] MEDS ORDERED: LORazepam INJ* 2 MG/ML 1 ML VIAL IV PUSH ONE (03:28)
[2016-12-06] MEDS ORDERED: ALPRAZolam TAB* 0.5 MG PO PRN (04:37)
[2016-12-06] MEDS ORDERED: Ondansetron INJ* 2 MG/ML VIAL IV PRN (04:42)
[2016-12-06] MEDS ORDERED: NS 0.9% 1000 ML* 1,000 ML IV SCH (04:45)
[2016-12-06] MEDS ORDERED: Levothyroxine TAB* 100 MCG TAB PO SCH (06:00)
[2016-12-06] MEDS: Heparin VIAL(*) 5000 UNITS/ML VIAL (FIVE THOUSAND) SUBCUT SCH ×3 (06:36→22:58)
[2016-12-06] MEDS: Morphine INJ* 2 MG/ML 1 ML SYRINGE IV PRN ×4 (06:37→19:40)
[2016-12-06] MEDS ORDERED: hydrALAZINE IV* 20 MG/ML VIAL IV SLOW PU PRN (07:36)
[2016-12-06] MEDS ORDERED: Metoprolol Tartrate IV* 1 MG/ML 5 ML VIAL IV PRN (07:36)
[2016-12-06] MEDS: Benzocaine/Menthol LOZ* 1 LOZENGE MT PRN ×2 (07:37→11:43)
--- NOTE | 2016-12-06 08:09 | RAD ---
CLINICAL HISTORY: Diffuse abdominal pain COMPARISON: None TECHNIQUE: Multiple contiguous axial CT scans were obtained of the abdomen and pelvis after the administration of intravenous contrast. Coronal and sagittal multiplanar reformations are submitted for review. Oral contrast was not administered. Delayed images were obtained through the abdomen and pelvis. FINDINGS: LUNG BASES: The lung bases are clear. LIVER: The liver is normal in shape, size, contour, and attenuation. BILE DUCTS: There is no intrahepatic or extrahepatic biliary dilatation. GALLBLADDER: The gallbladder is normal, without pericholecystic inflammatory change. PANCREAS: The pancreas is normal, without mass or ductal dilatation. SPLEEN: Normal in size and appearance. UPPER GI TRACT: Evaluation of the gastrointestinal tract is limited by incomplete gastric distention. There is a small sliding hiatal hernia. SMALL BOWEL AND MESENTERY: There is mild diffuse distention of small bowel without dilatation or transition point. There is fecalization of the small bowel contents distally. COLON: There are multiple diverticula of the sigmoid colon. There is no pericolonic inflammatory change. There is postsurgical change to the ascending colon. ADRENALS: Normal bilaterally. KIDNEYS: The kidneys are normal in shape, size, contour, and axis. There is no hydronephrosis or nephrolithiasis. BLADDER: The bladder is smooth in contour. PELVIC ORGANS: The pelvic organs are not visualized. AORTA: There is calcific atherosclerotic disease of the abdominal aorta and its branches, without aneurysmal dilatation IVC: Unremarkable LYMPH NODES: There is no lymphadenopathy by size criteria. ABDOMINAL WALL: A hernia repair mesh is noted on the right. BONES AND SOFT TISSUES: Patient is status post left hip arthroplasty. Degenerative changes noted of the spine OTHER: None IMPRESSION: 1. THERE IS MILD DIFFUSE DISTENTION OF SMALL BOWEL WITH EVIDENCE OF SLOW TRANSIT WHICH MAY INDICATE PARTIAL OR EARLY SMALL BOWEL OBSTRUCTION. 2. DIVERTICULOSIS. 3. ATHEROSCLEROSIS.
[2016-12-06] MEDS: LORazepam INJ* 2 MG/ML 1 ML VIAL IV PUSH PRN ×2 (08:31→16:46)
--- NOTE | 2016-12-06 08:48 | HP ---
CC: Malcolm De La Torre DO * HISTORY AND PHYSICAL: DATE OF ADMISSION: 12/05/16. PRIMARY CARE PHYSICIAN: Malcolm De La Torre DO. CHIEF COMPLAINT: Abdominal pain. HISTORY OF PRESENT ILLNESS: The patient is an 86-year-old woman who late yesterday afternoon she started developing cramps in her abdomen. She states she thought she could go to the bathroom at about 5 to 6 p.m., was unable to. Then, she noticed her abdomen kept swelling, became hard and quite painful. The pain seems to radiate to her back. She called a friend because the pain increased to the point she could not take it and the friend brought her to the hospital. After getting into the bed in the emergency room, the patient had vomited several times. In fact, it smelt like fecal matter. The patient did have a CAT scan of her abdomen and pelvis, which did show a low-grade bowel obstruction. PAST MEDICAL HISTORY: Significant for pulmonary embolism provoked due to long travel, breast cancer, migraines, depression, hypothyroidism, macular degeneration, TIAs, rheumatic fever in the past, post polio syndrome, hypertension. PAST SURGICAL HISTORY: Significant for lumpectomy, partial thyroidectomy, hysterectomy, and appendectomy, cataract extraction, polyp resection, was complicated by perforated bowel resulting in sepsis and ileostomy which has since been reversed, hernia repair, and she has had bilateral total knee replacements, and left total hip replacement. CURRENT MEDICATIONS: Include: 1. Synthroid 100 mcg daily. 2. Lisinopril 20 mg daily. 3. Verapamil 240 mg twice daily. 4. Paxil 30 mg daily. 5. PreserVision AREDS 2 one capsule twice daily. 6. Xanax 0.5 mg p.o. t.i.d. p.r.n. ALLERGIES: She has an allergy/adverse reaction to IMITREX. FAMILY HISTORY: Mother had hypertension, father had a CVA. SOCIAL HISTORY: No tobacco, rare alcohol. No recreational drug use. She cannot identify a surrogate decision maker at this point. REVIEW OF SYSTEMS: A 14-point review of systems was completed with the patient. All pertinent positives and negatives are in the history of present illness, otherwise is negative. PHYSICAL EXAMINATION GENERAL: Pleasant woman sitting up in bed, in no acute distress. VITAL SIGNS: Temperature 98.7 degrees, heart rate 84 beats per minute, respiratory rate 20 breaths per minute, pulse oxygenation 99%, blood pressure 132/72. HEENT: Normocephalic, atraumatic. Pupils are equal, round, and reactive to light. Moist mucous membranes. NECK: Supple. No JVD, bruits, palpable thyroid, or lymphadenopathy. CHEST: Clear to auscultation and percussion bilaterally. CARDIOVASCULAR: S1 and S2 appreciated. ABDOMEN: Positive bowel sounds in all 4 quadrants. Distended. Very tender, but no rebound, guarding or rigidity. EXTREMITIES: No cyanosis or clubbing. +2 peripheral pulses bilaterally. NEUROLOGIC: Alert and oriented x3. Moves all extremities. SKIN: No rashes or abnormalities. DIAGNOSTIC STUDIES/LAB DATA: White count 8.9, hemoglobin 12.8, hematocrit 39, platelets 201. Sodium is 138, potassium 3.9, chloride 103, CO2 26, BUN 33, creatinine is 0.90, glucose is 116. INR is 0.81. CT of the abdomen and pelvis was interpreted by Radiology as follows: Low grade small bowel obstruction at the level of the anastomosis with the cecum. ASSESSMENT AND PLAN: 1. Small bowel obstruction. NG-tube to be inserted to low continuous suction. morphine 2 mg IV q. 2 hours p.r.n., for pain. Normal saline at 100 cc per hour. The patient is n.p.o. We will ask surgery to evaluate. Hope this will resolve in the next couple of days on its own. 2. Hypothyroidism, stable. Continue Synthroid. 3. Depression, stable. Continue her Paxil. 4. Hypertension. BP adequately controlled. Continue current regimen. 5. FEN. N.p.o. Normal saline at 100 cc an hour. 6. DVT prophylaxis. Heparin subcu. 7. The patient is a full code. TIME SPENT: Over 75 minutes was spent on this H and P, more than 40 minutes of which was spent in direct [id number] contact with the patient evaluation, physical exam, counseling, and coordination of care. [id number]/[facility] #: [id number] MTDD
[2016-12-06] MEDS ORDERED: Lisinopril TAB* 10 MG PO SCH (09:00)
[2016-12-06] MEDS ORDERED: Multivitamins/Minerals TAB PO SCH (09:00)
[2016-12-06] MEDS ORDERED: Verapamil SR TAB* 240 MG PO SCH (09:00)
[2016-12-06] MEDS: Benzocaine/Butamben/Tetracain* SPRAY TOPICAL PRN ×2 (09:11→16:37)
--- NOTE | 2016-12-06 10:02 | PN ---
Hospitalist Progress Note HOSPITALIST ADDENDUM Patient seen and examined at bedside. Mrs. Arciniega is an 86yo F with PMH of PE, breast CA, migraines, depression, hypothyroidism, TIA, HTN, prior colon polyp ressection complicated by perforation requiring ressection and ileostomy, who presented to ED with c/o abdominal pain, distention, and vomiting, found to have SBO. NGT is still draining brown material and although it's bothering her throat, her abdominal distention and pain are significantly improved. Will continue current management with IVF, pain meds, NPO. Check KUB in AM.
[2016-12-06] MEDS: Levothyroxine INJ* 100 MCG/5 ML VIAL IV SCH (10:23)
[2016-12-06] MEDS ORDERED: PARoxetine HCL TAB* 10 MG PO SCH (18:00)
[2016-12-06] MEDS ORDERED: HYDROmorphone* 1 MG/ML 1 ML SYR IV SLOW PU ONE (20:32)
[2016-12-06] MEDS ORDERED: Phenol 1.4% Spray* 177 ML BTL MT PRN (20:46)
[2016-12-07] MEDS: Morphine INJ* 2 MG/ML 1 ML SYRINGE IV PRN ×3 (02:47→15:06)
[2016-12-07 03:26] LABS: Urine Bilirubin Negative (Negative); Urine Glucose Negative (Negative); Urine Nitrite Negative (Negative)
[2016-12-07 06:06] LABS: Hematocrit 33 % (35-47); Hemoglobin 10.7 g/dl (12.0-16.0); Mean Corpuscular HGB Conc 33 g/dl (31-36); Mean Corpuscular Hemoglobin 28 pg (27-31); Mean Corpuscular Volume 85 fL (80-97); Mean Platelet Volume 9 um3 (7.4-10.4); Red Blood Count 3.88 10^6/ul (4.0-5.4); Red Cell Distribution Width 17 % (10.5-15); White Blood Count 6.1 10^3/ul (3.5-10.8)
[2016-12-07 06:22] LABS: BUN/Creatinine Ratio 36.7 (8-20); Calcium 8.2 mg/dL (8.6-10.3); EGFR African American 154.7 (>60); EGFR Non-African American 120.3 (>60); Potassium 3.2 mmol/L (3.5-5.0)
[2016-12-07] MEDS: Heparin VIAL(*) 5000 UNITS/ML VIAL (FIVE THOUSAND) SUBCUT SCH ×3 (06:32→21:22)
[2016-12-07] MEDS: Levothyroxine INJ* 100 MCG/5 ML VIAL IV SCH (06:36)
[2016-12-07] MEDS ORDERED: HYDROmorphone* 1 MG/ML 1 ML SYR IV SLOW PU ONE (07:55)
[2016-12-07] MEDS ORDERED: HYDROmorphone* 1 MG/ML 1 ML SYR ONE (08:01)
--- NOTE | 2016-12-07 08:02 | RAD ---
INDICATION: Small bowel obstruction, follow-up. COMPARISON: Comparison is made with a prior CT of the abdomen and pelvis from one day earlier. TECHNIQUE: Frontal supine films of the abdomen were obtained. FINDINGS: There is a nasogastric tube present. The catheter tip projects just to the right of the midline over the upper abdomen. The small bowel and colon appear nondistended. There are coils which project over the right lower quadrant which correlate with a mesh graft on the prior CT study. The patient is status post total left hip replacement surgery. IMPRESSION: NO EVIDENCE FOR OBSTRUCTION.
--- NOTE | 2016-12-07 08:04 | PN ---
Subjective Date of Service: 12/07/16 Interval History: HOSPITALIST PROGRESS NOTE Patient seen and examined at bedside. Abdominal pain is resolved, she denies N/V, has not passed flatus or stool yet. NGT is bothering her a lot. C/o headache she thinks is secondary to lack of caffeine. Family History: Unchanged from Admission Social History: Unchanged from Admission Past Medical History: Unchanged from Admission Objective Active Medications: Benzocaine/Butamben/Tetracaine HCl (Cetacaine [place]*) 1 spray TOPICAL Q6H PRN PRN Reason: SORE THROAT Last Admin: 12/06/16 16:37 Dose: 1 spray Heparin Sodium (Porcine) (Heparin Vial(*)) 5,000 units SUBCUT Q8HR [facility] Last Admin: 12/07/16 06:32 Dose: 5,000 units Hydralazine HCl (Apresoline Iv*) 5 mg IV SLOW PU Q6H PRN PRN Reason: SBP>170 Hydromorphone HCl (Dilaudid Iv*) 0.5 mg IV SLOW PU ONCE ONE Stop: 12/07/16 07:56 Potassium Chloride/Sodium Chloride (Ns 0.9% W/ 20 Meq Kcl 1000 Ml*) 1,000 mls @ 75 mls/hr IV PER RATE [facility] Potassium Chloride (Potassium Chloride 10 Meq/50 Ml Ivpremix*) 10 meq in 50 mls @ 50 mls/hr IV Q1H [facility] Stop: 12/07/16 10:59 Levothyroxine Sodium (Synthroid Inj*) 50 mcg IV 0600 [facility] Last Admin: 12/07/16 06:36 Dose: 50 mcg Lorazepam (Ativan Inj*) 0.5 mg IV PUSH Q4H PRN PRN Reason: ANXIETY Last Admin: 12/06/16 16:46 Dose: 0.5 mg Metoprolol Tartrate (Lopressor Iv*) 5 mg IV Q6H PRN PRN Reason: HR>110 Morphine Sulfate (Morphine Inj (Syringe)*) 2 mg IV Q2H PRN PRN Reason: PAIN Last Admin: 12/07/16 02:47 Dose: 2 mg Ondansetron HCl (Zofran Inj*) 4 mg IV Q4H PRN PRN Reason: NAUSEA Phenol/Menthol (Chloroseptic Throat [place]*) 1 spray MT TID PRN PRN Reason: SORE THROAT Throat Lozenges (Chloraseptic Farshad*) 1 farshad MT Q3H PRN PRN Reason: SORE THROAT Last Admin: 12/06/16 11:43 Dose: 1 farshad Vital Signs 12/07/16 12/07/16 12/07/16 02:47 03:03 07:33 Temperature 98.4 F 97.7 F Pulse Rate 82 87 Respiratory 16 14 17 Rate Blood Pressure 161/80 157/80 (mmHg) O2 Sat by Pulse 95 97 Oximetry Oxygen Devices in Use Now: None Appearance: Elderly lady lying in bed in NAD. Eyes: No Scleral Icterus Ears/Nose/Mouth/Throat: Mucous Membranes Moist Neck: Trachea Midline Respiratory: Symmetrical Chest Expansion and Respiratory Effort, Clear to Auscultation Cardiovascular: RRR - Normal S1 and S2 Abdominal: - - Soft, no distention, no tenderness, BS+ hypoactive Neurological: Alert and Oriented x 3, NL Muscle Strength and Tone Lines/Tubes/Other Access: Clean, Dry and Intact Peripheral IV Result Diagrams: 12/07/16 05:55 12/07/16 05:55 Assess/Plan/Problems-Billing Assessment: Mrs. Arciniega is an 86yo F with PMH of PE, breast CA, migraines, depression, hypothyroidism, macular degeneration, TIA, HTN, prior colon polyp ressection complicated by perforation requiring ressection and ileostomy, who presented to ED with c/o abdominal pain, found to have possible partial SBO. - Patient Problems (1) Partial small bowel obstruction Comment: - Improving. - KUB shows resolution. - Will d/c NGT and start clear liquids as tolerated. (2) Hypokalemia Comment: - Replete. (3) Hypothyroidism Comment: - Continue levothyroxine IV for now. Will change to PO if she tolerates diet. (4) HTN (hypertension) Comment: - Has not required PRN IV hydralazine so far. - Will resume lisinopril and verapamil if she tolerates PO. (5) DVT prophylaxis Comment: - SQ heparin. - Encourage ambulation. (6) Full code status Status and Disposition: Inpatient for management of pSBO requiring >48h for stabilization.
[2016-12-07] MEDS: KCL 10 MEQ/50 ML IVPREMIX* 10 MEQ/50 ML BAG IV SCH ×3 (08:49→12:31)
[2016-12-07 09:13] LABS: Magnesium 1.9 mg/dL (1.9-2.7)
[2016-12-07] MEDS: NS 0.9% w/ 20 Meq KCL 1000 ML* 1,000 ML IV SCH (14:41)
[2016-12-07] MEDS: LORazepam INJ* 2 MG/ML 1 ML VIAL IV PUSH PRN (21:22)
[2016-12-08] MEDS: NS 0.9% w/ 20 Meq KCL 1000 ML* 1,000 ML IV SCH (03:18)
[2016-12-08] MEDS: Levothyroxine INJ* 100 MCG/5 ML VIAL IV SCH (06:08)
[2016-12-08] MEDS: Heparin VIAL(*) 5000 UNITS/ML VIAL (FIVE THOUSAND) SUBCUT SCH ×3 (06:09→21:35)
[2016-12-08] MEDS ORDERED: ALPRAZolam TAB* 0.5 MG PO PRN (07:06)
[2016-12-08] MEDS: Verapamil SR TAB* 240 MG PO SCH (09:21)
[2016-12-08] MEDS: Lisinopril TAB* 10 MG PO SCH (09:22)
[2016-12-08 09:44] LABS: Hematocrit 38 % (35-47); Hemoglobin 12.1 g/dl (12.0-16.0); Mean Corpuscular HGB Conc 32 g/dl (31-36); Mean Corpuscular Hemoglobin 27 pg (27-31); Mean Corpuscular Volume 85 fL (80-97); Mean Platelet Volume 10 um3 (7.4-10.4); Red Cell Distribution Width 18 % (10.5-15); White Blood Count 4.7 10^3/ul (3.5-10.8)
[2016-12-08 10:23] LABS: BUN/Creatinine Ratio 11.1 (8-20); Calcium 8.9 mg/dL (8.6-10.3); EGFR African American 115.8 (>60)
[2016-12-08] MEDS: Potassium Chlor TAB* 20 MEQ TAB.ER PO SCH ×3 (12:21→21:34)
--- NOTE | 2016-12-08 12:51 | PN ---
Subjective Date of Service: 12/08/16 Interval History: HOSPITALIST PROGRESS NOTE Patient seen and examined at bedside. She feels better today, abdominal pain is much improved, had a small BM last night and wants to eat more. Family History: Unchanged from Admission Social History: Unchanged from Admission Past Medical History: Unchanged from Admission Objective Active Medications: Alprazolam (Xanax Tab*) 0.5 mg PO TID PRN PRN Reason: ANXIETY Benzocaine/Butamben/Tetracaine HCl (Cetacaine [place]*) 1 spray TOPICAL Q6H PRN PRN Reason: SORE THROAT Last Admin: 12/06/16 16:37 Dose: 1 spray Heparin Sodium (Porcine) (Heparin Vial(*)) 5,000 units SUBCUT Q8HR [facility] Last Admin: 12/08/16 06:09 Dose: 5,000 units Hydralazine HCl (Apresoline Iv*) 5 mg IV SLOW PU Q6H PRN PRN Reason: SBP>170 Levothyroxine Sodium (Synthroid Tab*) 100 mcg PO DAILY@0600 [facility] Lisinopril (Prinivil Tab*) 20 mg PO DAILY [facility] Last Admin: 12/08/16 09:22 Dose: 20 mg Lorazepam (Ativan Inj*) 0.5 mg IV PUSH Q4H PRN PRN Reason: ANXIETY Last Admin: 12/07/16 21:22 Dose: 0.5 mg Metoprolol Tartrate (Lopressor Iv*) 5 mg IV Q6H PRN PRN Reason: HR>110 Morphine Sulfate (Morphine Inj (Syringe)*) 2 mg IV Q2H PRN PRN Reason: PAIN Last Admin: 12/07/16 15:06 Dose: 2 mg Ondansetron HCl (Zofran Inj*) 4 mg IV Q4H PRN PRN Reason: NAUSEA Last Admin: 12/07/16 21:22 Dose: 4 mg Paroxetine HCl (Paxil Tab*) 30 mg PO QPM [facility] Phenol/Menthol (Chloroseptic Throat [place]*) 1 spray MT TID PRN PRN Reason: SORE THROAT Last Admin: 12/07/16 08:08 Dose: 1 spray Potassium Chloride (Klor Con Er Tab*) 40 meq PO TID [facility] Last Admin: 12/08/16 12:21 Dose: 40 meq Throat Lozenges (Chloraseptic Farshad*) 1 farshad MT Q3H PRN PRN Reason: SORE THROAT Last Admin: 12/06/16 11:43 Dose: 1 farshad Verapamil HCl (Calan Sr Tab*) 240 mg PO DAILY [facility] Last Admin: 12/08/16 09:21 Dose: 240 mg Vital Signs 12/08/16 12/08/16 12/08/16 07:18 07:41 11:20 Temperature 98.3 F 97.8 F Pulse Rate 71 72 Respiratory 16 16 16 Rate Blood Pressure 153/73 137/75 (mmHg) O2 Sat by Pulse 98 97 Oximetry Oxygen Devices in Use Now: None Appearance: Pleasant elderly lady lying in bed in NAD. Eyes: No Scleral Icterus Ears/Nose/Mouth/Throat: Mucous Membranes Moist Neck: Trachea Midline Respiratory: Symmetrical Chest Expansion and Respiratory Effort, Clear to Auscultation Cardiovascular: RRR - Normal S1 and S2 Abdominal: - - Obese, soft, NT, BS+ Neurological: Alert and Oriented x 3, NL Muscle Strength and Tone Lines/Tubes/Other Access: Clean, Dry and Intact Peripheral IV Nutrition: Taking PO's Result Diagrams: 12/08/16 08:39 12/08/16 08:39 Assess/Plan/Problems-Billing Assessment: Mrs. Arciniega is an 86yo F with PMH of PE, breast CA, migraines, depression, hypothyroidism, macular degeneration, TIA, HTN, prior colon polyp ressection complicated by perforation requiring ressection and ileostomy, who presented to ED with c/o abdominal pain, found to have possible partial SBO. - Patient Problems (1) Partial small bowel obstruction Comment: - Resolved. - Advance diet as tolerated. (2) Hypokalemia Comment: - Replete. (3) Hypothyroidism Comment: - Resume PO levothyroxine. (4) HTN (hypertension) Comment: - Resume lisinopril and verapamil PO. (5) DVT prophylaxis Comment: - SQ heparin. - Encourage ambulation. (6) Full code status Status and Disposition: Inpatient for management of pSBO requiring >48h for stabilization. Anticipate d/ c in AM if she tolerates PO diet and meds.
[2016-12-08] MEDS ORDERED: PARoxetine HCL TAB* 10 MG PO SCH (18:00)
[2016-12-09] MEDS: Heparin VIAL(*) 5000 UNITS/ML VIAL (FIVE THOUSAND) SUBCUT SCH (05:45)
[2016-12-09] MEDS ORDERED: Levothyroxine TAB* 100 MCG TAB PO SCH (06:00)
[2016-12-09 07:02] LABS: BUN/Creatinine Ratio 15.2 (8-20); Blood Urea Nitrogen 10 mg/dL (6-24); CO2 Carbon Dioxide 22 mmol/L (22-32); Chloride 107 mmol/L (101-111); EGFR African American 109.7 (>60); EGFR Non-African American 85.3 (>60); Glucose 82 mg/dL (70-100); Sodium 136 mmol/L (133-145)
[2016-12-09 07:03] LABS: Anion Gap 7 mmol/L (2-11)
[2016-12-09 08:02] VITALS: BP 153/66
[2016-12-09] MEDS: Potassium Chlor TAB* 20 MEQ TAB.ER PO SCH (09:14)
[2016-12-09] MEDS: Lisinopril TAB* 10 MG PO SCH (09:14)
[2016-12-09] MEDS: Verapamil SR TAB* 240 MG PO SCH (09:14)
--- NOTE | 2016-12-09 22:59 | DS ---
CC: Dr. De La Torre * DISCHARGE SUMMARY: DATE OF ADMISSION: 12/05/16 DATE OF DISCHARGE: 12/09/16 PRIMARY CARE PROVIDER: Dr. De La Torre DISCHARGE DIAGNOSES: 1. Partial small bowel obstruction. 2. Hypokalemia. SECONDARY DIAGNOSES: 1. History of pulmonary embolism provoked due to long travel. 2. Breast cancer status post lumpectomy. 3. Migraines. 4. Depression. 5. Hypothyroidism. 6. Macular degeneration. 7. Transient ischemic attack. 8. Remote history of rheumatic fever. 9. Postpolio syndrome. 10. Hypertension. 11. History of polypectomy complicated by perforated bowel resulting in need for right colon resection and ileostomy, which was later on reversed (in 2005). 12. Status post hernia repair. MEDICATION LIST: 1. Alprazolam 0.5 mg p.o. t.i.d. as needed for anxiety. 2. Levothyroxine 100 mcg p.o. q.a.m. 3. Lisinopril 20 mg p.o. q.a.m. 4. PreserVision 1 capsule p.o. b.i.d. 5. Paroxetine 20 mg p.o. q.p.m. 6. Verapamil 240 mg p.o. b.i.d. HOSPITAL COURSE: Mrs. Arciniega is an 86-year-old lady with a past medical history as stated above that presented to the emergency room with complaints of crampy abdominal pain associated with abdominal distention, nausea, and vomiting. Admitting physician described her vomit as fecal matter. For more details about presentation, I refer you to her history and physical. In the emergency room, the patient had a CT of the abdomen and pelvis that showed mild diffuse distention of the small bowel with evidence of low transit, which may indicate partial or early small bowel obstruction. The patient had a NG tube placed that drained 700 mL of foul-smelling material and the patient had significant symptomatic improvement after that. She was able to pass flatus, had bowel movements, and was started on clear liquid diet that was slowly advanced to a low residue diet that she tolerated well. She was also able to tolerate her oral meds. The patient was advised to follow a low-residue diet for 2 weeks and then return to her usual diet. She states that usually she has daily bowel movements at home and does not need laxative. She was educated about signs and symptoms of small bowel obstruction, and she was encouraged to return to the emergency room if her symptoms recur. The patient is medically stable to be discharged home today. PHYSICAL EXAMINATION: Vital Signs: Temperature 98.2, heart rate is 66, respiratory rate is 16, oxygen saturation is 99% on room air, and blood pressure is 153/66. General: The patient is a pleasant elderly lady, lying in bed, in no acute distress. CVS: Normal S1, S2. Regular rate and rhythm. Chest: Breath sounds present bilaterally with no added sounds. Abdomen is obese, soft, nontender, nondistended. Bowel sounds are present. Neuro: She is alert, awake, oriented x3. Able to move all 4 extremities. DIET: Low residue diet for 2 weeks. ACTIVITIES: As tolerated. DISPOSITION: To home. STATUS WHILE IN THE HOSPITAL: Inpatient. Please keep in mind this is a summarized version of this patient's hospital stay. If you need more information, please feel free to call me at [phone] or please obtain the full medical records. TIME SPENT: Approximately 45 minutes was spent to complete this discharge. [id number]/[facility] #: [id number] MTDD
== END 2016-12-09 10:00 | disposition home or self-care (01) | DRG 390 ==
LOC: ED 22:42 → SSU 12-06 04:43
PROVIDERS: ADMIT Internal Medicine; ATTEND Internal Medicine
PROC: 0D9670Z Drainage of Stomach with Drainage Device, Via Natural or Artificial Opening (ICD-10-PCS; principal; 2016-12-06)
DX: K56.60 Unspecified intestinal obstruction (principal); I10 Essential (primary) hypertension; E87.6 Hypokalemia; E03.9 Hypothyroidism, unspecified; F32.9 Major depressive disorder, single episode, unspecified; G43.909 Migraine, unspecified, not intractable, without status migrainosus; H35.30 Unspecified macular degeneration; G14 Postpolio syndrome; Z85.3 Personal history of malignant neoplasm of breast; Z86.711 Personal history of pulmonary embolism; Z86.73 Personal history of transient ischemic attack (TIA), and cerebral infarction without residual deficits; Z79.899 Other long term (current) drug therapy; Z88.8 Allergy status to other drugs, medicaments and biological substances; Z82.49 Family history of ischemic heart disease and other diseases of the circulatory system; Z82.3 Family history of stroke
CPT/HCPCS: 36415; 74000; 74177; 80048; 80053; 81003; 83605; 83690; 83735; 85025; 85610; 86140; 87040; A9270-GY; J1170; J1644; J2060; J2270; J2405; J3480; Q9967

== ENCOUNTER 2017-03-20 10:32 | Inpatient (IN) | payer MEDICARE ==
--- NOTE | 2017-03-08 06:25 | HP ---
HISTORY AND PHYSICAL: DATE OF OFFICE VISIT: 03/07/17 DATE OF SURGERY: 03/20/17 SURGEON: Latanya Vang MD * (DICTATED BY RINA OLIVARES) PROCEDURE: Right total hip arthroplasty. CHIEF COMPLAINT: Right hip pain. HISTORY OF PRESENT ILLNESS: Ms. Arciniega is an 86-year-old female with complaints of right hip pain secondary to advanced osteoarthritis. She has failed conservative management and elected to proceed with a right total hip arthroplasty, which is scheduled for 03/20/[address] Vang. PAST MEDICAL HISTORY: History of DVT/PE, history of breast cancer, migraines, depression, hypothyroidism, macular degeneration, post-polio syndrome, and rheumatic fever. PAST SURGICAL HISTORY: Lumpectomy, partial thyroidectomy, hysterectomy, appendectomy, cataract removal, tonsillectomy, adenoidectomy, ileostomy, reversal of ileostomy and colon resection, hernia repair, bilateral total knee arthroplasties, and left total hip arthroplasty. CURRENT MEDICATIONS: 1. AREDS. 2. Lisinopril 20 mg daily. 3. Synthroid 100 mcg daily. 4. Paroxetine 30 mg daily. 5. Verapamil 240 mg twice daily. ALLERGIES: IMITREX. FAMILY HISTORY: Diabetes, heart disease, brain tumor, Parkinson's, and stroke. SOCIAL HISTORY: She is an 86-year-old female. She lives alone. She does not smoke or use drugs. She uses occasional alcohol. REVIEW OF SYSTEMS: A complete 14-point review of systems was reviewed with the patient. It was positive for vertigo and hypothyroidism, history of DVT and PE , last was May 2010. She denies history of hepatitis C, HIV, MRSA, or anesthesia problems. PHYSICAL EXAMINATION GENERAL: She is well developed, well nourished, in no acute distress. VITAL SIGNS: She stands 5 feet 4 inches tall, weighs 180 pounds. Blood pressure 130/76, heart rate 84. HEENT: Normocephalic, atraumatic. NECK: Supple. No palpable lymph nodes. PULMONARY: The lungs are clear to auscultation bilaterally. CARDIO: Regular rate and rhythm. Strong S1, S2. ABDOMEN: Soft, nontender, nondistended. NEUROLOGICAL: Alert and oriented x3. Cranial nerves II through XII are intact. MUSCULOSKELETAL: Right lower extremity, skin is intact. There are no open wounds or abrasions. She has decreased internal and external rotation of the right hip. She walks with antalgic-type gait. She is distally neurovascularly intact. ASSESSMENT AND PLAN: Ms. 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 She has failed conservative management and elected to proceed with a right total hip arthroplasty, which is scheduled for 03/20/[address] Vang discussed the risks and benefits of the surgery at today's visit and all of her questions were answered. Coumadin was sent to her pharmacy for postoperative DVT prophylaxis. She has a current prescription for Percocet. She will follow up with Dr. Vang in 2 weeks after the surgery. RINA OLIVARES [id number]/[facility] #: [id number] MTDD
[~2017-03-20 10:32] MED LIST changes: +Buffered Lidocaine 0.9% SYRIN* 5 ML/SYR SYRINGE INTRADERM ONE; +Gabapentin CAP(*) 300 MG PO ONE
[2017-03-20] MEDS ORDERED: Gabapentin CAP(*) 300 MG ONE (10:46)
[2017-03-20] MEDS ORDERED: ceFAZolin 2 GM PREMIX (*) 2 GM/50 ML BAG IVPB ONE (10:47)
[2017-03-20] MEDS ORDERED: Buffered Lidocaine 0.9% SYRIN* 5 ML/SYR SYRINGE ONE (10:47)
[2017-03-20] MEDS ORDERED: Famotidine IV* 10 MG/ML 2 ML (20 mg) ONE (10:47)
[2017-03-20] MEDS ORDERED: fentaNYL* 50 MCG/ML 2 ML VIAL (100 MCG VIAL) ONE ×2 (11:29→15:20)
[2017-03-20] MEDS ORDERED: Morphine PF AMP (0.5MG/ML)* 5 MG/10 ML AMP ONE (11:29)
[2017-03-20] MEDS ORDERED: Midazolam* 1 MG/ML 2 ML VIAL (2 MG) ONE (11:29)
[2017-03-20] MEDS ORDERED: KETAMINE HCL* 50 MG/ML 10 ML VIAL ONE (14:43)
[2017-03-20] MEDS ORDERED: Propofol* 10 MG/ML 20 ML BTL IV PUSH ONE (14:54)
[2017-03-20] MEDS ORDERED: Dexamethasone IV* 4 MG/ML 1 ML (4 MG) ONE (14:54)
[2017-03-20] MEDS ORDERED: DiMENhydriNATE IV* 50 MG/ML VIAL ONE (14:54)
[2017-03-20] MEDS ORDERED: Succinylcholine* 20 MG/ML 10 ML VIAL ONE (14:54)
[2017-03-20] MEDS ORDERED: Ondansetron INJ* 2 MG/ML VIAL ONE (14:54)
[2017-03-20] MEDS ORDERED: Lidocaine 2% PF * 5 ML VIAL ONE (14:54)
[2017-03-20] MEDS ORDERED: Ketorolac INJ* 30 MG/ML 1 ML VIAL ONE (14:54)
[2017-03-20] MEDS ORDERED: diPHENhydraMINE IV* 50 MG/ML 1 ml VIAL (BENADRYL) IV PRN (15:44)
[2017-03-20] MEDS ORDERED: Bisacodyl SUPP* 10 MG SUPP PR PRN (15:44)
[2017-03-20] MEDS ORDERED: Ondansetron INJ* 2 MG/ML VIAL IV PRN (15:44)
[2017-03-20] MEDS ORDERED: Polyethylene Glycol 3350* 17 GM PACKET PO PRN (15:44)
[2017-03-20] MEDS ORDERED: oxyCODONE/Acetamin 5/325 MG* TAB PO PRN ×2 (15:44→17:18)
[2017-03-20] MEDS ORDERED: ceFAZolin 1 GM VIAL(*) 1 GM in NS 0.9% 50 ML* 50 ML IVPB SCH (16:00)
[2017-03-20] MEDS ORDERED: HYDROmorphone INJ* 1 MG/ML CARPUJECT SYRINGE ONE ×2 (16:13→17:38)
--- NOTE | 2017-03-20 16:24 | RAD ---
HISTORY: Right hip replacement COMPARISONS: March 07, 2017 VIEWS: 1, portable intraoperative view of the pelvis to hip arthroplasty FINDINGS: BONE DENSITY: Normal. BONES: The patient is status post bilateral hip arthroplasty. There is a temporary femoral sizing component on the right. JOINTS: The patient is status post bilateral hip arthroplasty ALIGNMENT: There is no dislocation. SOFT TISSUES: Unremarkable. OTHER FINDINGS: None. IMPRESSION: PORTABLE INTRAOPERATIVE VIEW OF THE PELVIS DURING HIP ARTHROPLASTY
[2017-03-20] MEDS ORDERED: Bupivacaine 0.5% SDV PF* 30 ML VIAL ONE (16:53)
[2017-03-20] MEDS ORDERED: DiMENhydriNATE IV* 50 MG/ML VIAL IV PUSH PRN (17:18)
[2017-03-20] MEDS ORDERED: oxyCODONE TAB* 5 MG TAB ONE (17:38)
[2017-03-20] MEDS: HYDROmorphone INJ* 1 MG/ML CARPUJECT SYRINGE IV PRN ×5 (17:40→18:24)
[2017-03-20] MEDS: oxyCODONE TAB* 5 MG TAB PO PRN (17:51)
--- NOTE | 2017-03-20 18:10 | RAD ---
HISTORY: Postoperative arthroplasty COMPARISONS: March 07, 2017 VIEWS: 3, Frontal view of the pelvis with frontal and crosstable lateral views of the right hip FINDINGS: BONE DENSITY: Normal. BONES: The patient is status post bilateral hip arthroplasty. On the right, there is no hardware failure or osteolysis. JOINTS: The patient is status post bilateral hip arthroplasty ALIGNMENT: There is no dislocation. SOFT TISSUES: Unremarkable. OTHER FINDINGS: A hernia repair mesh is noted. IMPRESSION: STATUS POST BILATERAL HIP ARTHROPLASTY
[2017-03-20] MEDS: oxyCODONE/Acetamin 5/325 MG* TAB PO PRN (20:52)
[2017-03-20] MEDS: Verapamil SR TAB* 240 MG PO SCH (20:52)
[2017-03-20] MEDS: Docusate CAP* 100 MG PO SCH (20:53)
[2017-03-20] MEDS ORDERED: Warfarin TAB(*) 6 MG PO ONE (21:00)
[2017-03-20] MEDS: PARoxetine HCL TAB* 10 MG PO SCH (21:09)
[2017-03-20] MEDS ORDERED: ceFAZolin 1 GM in Dextrose (*) 1 GM/50 ML BAG IVPB SCH (23:00)
[2017-03-20] MEDS: ALPRAZolam TAB* 0.5 MG PO PRN (23:14)
--- NOTE | 2017-03-21 04:19 | OP ---
DATE OF OPERATION: 03/20/17 - ROOM #339 DATE OF : 34 SURGEON: Latanya Vang MD PHOTOGRAPHIC REPRODUCTION TECHNICIAN: RINA Nettles. Ms. Zarco did help throughout the procedure with preparation of the leg, wound retraction, manipulation of the hip and wound closure. ANESTHESIOLOGIST: Dr. Flores. ANESTHESIA: General. PRE-OP DIAGNOSIS: Severe end-stage degenerative osteoarthritis of the right hip joint. POST-OP DIAGNOSIS: Severe end-stage degenerative osteoarthritis of the right hip joint. OPERATIVE PROCEDURE: Right total hip arthroplasty. ESTIMATED BLOOD LOSS: 400 cc. COMPLICATIONS: None. SPECIMEN: Femoral head and acetabular reaming sent to pathology. HARDWARE USED: This is uncemented Letitia total hip hardware. For the cup, a Trident 52E hemispherical acetabular shell, a single 20 mm cancellous bone screw. For the stem, an Accolade TMZF size 3.5 with a 132-degree neck. For the insert, a Trident X3 1-degree polyethylene insert 36E. For the head, a Biolox delta ceramic V40 femoral head 36 -3.5. BRIEF HISTORY/INDICATIONS: Ms. Arciniega is an 86-year-old female with 6 months of increasingly severe right hip pain. She failed conservative treatment with anti- inflammatories, pain medication, intraarticular injection, and physical therapy. Radiographs showed [id number] arthritis. Due to continued pain and decreased quality of life, the patient elected to undergo right total hip arthroplasty. Informed consent was obtained from the patient. She understood the risks of procedure included but were not limited to bleeding, infection, damage to nearby structures, continued pain, need for further surgery, intraoperative fracture, nerve palsy, hardware failure or loosening, dislocation , leg length discrepancy, stroke, heart attack, blood clot and . She wished to proceed. INTRAOPERATIVE FINDINGS: Intraoperatively, the patient was noted to have severe end-stage arthritis. She had complete loss of cartilage along the femoral head and acetabulum. DESCRIPTION OF PROCEDURE: Ms. Arciniega was identified in the preanesthesia unit. Her right lower extremity was marked as the correct operative side. Informed consent was signed and placed in the chart. The patient was taken to the operating room and placed under general anesthesia. A Condon catheter was placed. She was placed in the right lateral decubitus position on the peg board with all bony prominences well padded. The right lower extremity was prepped and draped in the usual sterile fashion. Preop time-out was made to correctly identify the patient's side and site. Appropriate perioperative antibiotics were given within 1 hour of incision. A 12 cm posterior hip incision was made with the 10 blade and carried down to the lateral fascial layer. Lateral fascia layer was incised in line with the skin incision. A Charnley retractor was placed. The piriformis and conjoint tendons were elevated off the posterolateral femur and tagged with #5 Ethibond. Electrocautery was used to make a standard posterolateral capsular flap and this was also tagged with #5 Ethibond. The hip was carefully dislocated. Lesser troch to center of the femoral head measured 65 mm. The oscillating saw was used to make the appropriate femoral neck cut. The femur was carefully retracted anteriorly. After appropriate placement of retractors, the acetabulum was visualized. A long- handled knife was used to sharply remove any remaining labrum from the acetabular rim. The acetabulum was sequentially reamed up to a size 51. Bleeding subchondral bone bed was obtained. A 51 trial had excellent fit. The final implant chosen was a Trident hemispherical acetabular shell 52E. This was impacted into the acetabulum without difficulty. There was good stability of the acetabular cup. A single 20 mm screw was placed in the superior posterior quadrant for extra stability. A Trident X3 polyethylene insert 36E was chosen as the appropriate implant. This was impacted into the acetabulum without difficulty. Stability of the insert was checked and rechecked and noted to be stable. Attention was next turned to the preparation of the femur. A canal finder was used to enter the proximal femur. The femur was sequentially broached up to a size 3.5. The 3.5 stem had excellent fit and appropriate anteversion. A 132 neck trial and 36 +0 head trial were chosen. The lesser troch to center of the femoral head measured 56 mm. The hip was reduced and taken through range of motion. The hip was stable in all positions. The hip was dislocated. All trials were carefully removed. Final implant chosen was an Accolade TMZF size 3.5 with a 132-degree neck. This was impacted into the femoral canal without difficulty. The femoral stem was stable with appropriate anteversion. The final head chosen was a Biolox delta ceramic V40 36 -3.5 femoral head. This was impacted on to the femoral neck without difficulty. The lesser troch to center of the femoral head measured 55 mm. The hip was reduced and taken through a range of motion. The hip was stable in all positions. The hip was copiously irrigated with sterile saline. The previously tagged capsule and tendons were reapproximated to the posterolateral femur through 2 trochanteric drill holes. The lateral fascial layer was closed using interrupted #1 Vicryl. The rest of the incision was closed in a layered fashion using 0 and 2-0 Vicryl. Skin was closed using running 3-0 Monocryl and Dermabond. Sterile Adaptic, 4x4, and paper tape were used to cover the incision. The patient's anesthesia was reversed without difficulty. She was taken to the PACU in stable condition. Intended weightbearing will be weightbearing as tolerated. Intended DVT prophylaxis will be Coumadin with a Lovenox bridge. [id number]/[facility] #: [id number] BRIGITTE
[2017-03-21] MEDS: Levothyroxine TAB* 100 MCG TAB PO SCH (05:31)
[2017-03-21] MEDS: oxyCODONE TAB* 5 MG TAB PO PRN ×2 (05:31→23:27)
[2017-03-21 05:43] LABS: Hematocrit 31 % (35-47); Hemoglobin 10.5 g/dl (12.0-16.0); Mean Platelet Volume 9 um3 (7.4-10.4)
[2017-03-21 05:57] LABS: BUN/Creatinine Ratio 23.9 (8-20); Calcium 7.8 mg/dL (8.6-10.3); EGFR African American 100.9 (>60); EGFR Non-African American 78.4 (>60); Potassium 3.7 mmol/L (3.5-5.0)
[2017-03-21] MEDS: ceFAZolin 1 GM in Dextrose (*) 1 GM/50 ML BAG IVPB SCH ×2 (08:15→17:03)
[2017-03-21] MEDS: Vitamin THERAPEUTIC TAB PO SCH (08:51)
[2017-03-21] MEDS: Docusate CAP* 100 MG PO SCH ×2 (08:51→20:46)
[2017-03-21] MEDS: oxyCODONE/Acetamin 5/325 MG* TAB PO PRN ×3 (08:52→17:04)
[2017-03-21] MEDS: Verapamil SR TAB* 240 MG PO SCH ×2 (08:52→20:47)
[2017-03-21] MEDS: Enoxaparin(*) 40 MG/0.4 ML SYR SUBCUT SCH (08:56)
[2017-03-21] MEDS ORDERED: Lisinopril TAB* 10 MG PO SCH (09:00)
--- NOTE | 2017-03-21 12:51 | PN ---
Progress Note - Progress Note Date of Service: 03/21/17 SOAP: Subjective: 86 year old female s/p R NADINE by Dr. Vang 03/20. Patient overall feeling well, less pain then prior NADINE. VSS, afebrile overnight. Objective: General - Well appearing, resting in bed comfortably, NAD AO MSK- surgical dressing intact, no drainage noted, no induration/ erythema around site. + DF/PF b/l, neg homans SITLT b/l LEs minimal non-pitting edema b/ l LES Vital Signs Temp 97.9 F 03/21/17 11:46 Pulse 74 03/21/17 11:46 Resp 16 03/21/17 11:56 BP 106/39 03/21/17 11:46 Pulse Ox 94 03/21/17 11:46 Intake & Output 03/20/17 03/21/17 03/21/17 18:59 06:59 18:59 Intake Total 1850 610 348 Output Total 200 500 250 Balance 1650 110 98 Weight 85.366 kg Intake: IV Fluids 1850 288 LR 288 NS 50ML, Cefazolin 2G 50 lr 1800 IVPB 60 Cefazolin 60 Oral 610 Output: Urine 250 Condon 200 500 Other: # Bowel Movements 0 Laboratory Results - last 24 hr 03/21/17 03/21/17 03/21/17 05:14 05:14 05:15 Hgb 10.5 L Hct 31 L Plt Count 163 MPV 9 INR (Anticoag Therapy) 0.97 Sodium 136 Potassium 3.7 Chloride 105 Carbon Dioxide 26 Anion Gap 5 BUN 17 Creatinine 0.71 Est GFR ( Amer) 100.9 Est GFR (Non-Af Amer) 78.4 BUN/Creatinine Ratio 23.9 H Glucose 151 H Calcium 7.8 L Assessment: 86 year old female s/p R NADINE by Dr. Vang 03/20. Plan: - DVT- prophylaxis- Continue coumadin, 6mg tonight, lovenox - Continue PT/ OT = Continue curretn pain regimen - Possible D/C to SNF/ [facility] Friday, paperwork completed. Active Medications Generic Name Dose Route Start Last Admin Trade Name Freq PRN Reason Stop Dose Admin Alprazolam 0.5 mg 03/20/17 15:50 03/20/17 23:14 Xanax Tab* PO 0.5 mg TID PRN Administration ANXIETY Bisacodyl 10 mg 03/20/17 15:44 Dulcolax Supp* NV DAILY PRN constipation Diphenhydramine HCl 25 mg 03/20/17 15:44 Benadryl Iv* IV Q6H PRN itching Docusate Sodium 100 mg 03/20/17 21:00 03/21/17 08:51 Colace Cap* PO 100 mg BID STACEY Administration Enoxaparin Sodium 40 mg 03/21/17 09:00 03/21/17 08:56 Lovenox(*) SUBCUT 40 mg Q24H STACEY Administration Lactated Ringer's 1,000 mls @ 50 mls/hr 03/20/17 16:00 Lactated Ringers 1000 Ml Bag* IV PER RATE STACEY Cefazolin Sodium/Dextrose 1 gm in 50 mls @ 200 mls/hr 03/21/17 08:00 08:15 Kefzol 1 Gm In Dextrose Duplex (*) IVPB 03/21/17 16:14 200 mls/hr 0000,0800,1600 STACEY Administration Lactulose 30 ml 03/20/17 15:44 03/21/17 08:51 Lactulose* PO 30 ml Q6H PRN Administration constipation Levothyroxine Sodium 100 mcg 03/21/17 06:00 03/21/17 05:31 Synthroid Tab* PO 100 mcg QAM@0600 STACEY Administration Lisinopril 20 mg 03/21/17 09:07 Prinivil Tab* PO QAM STACEY Morphine Sulfate 2 mg 03/20/17 15:44 Morphine Inj (Syringe)* IV Q2H PRN PAIN - UNCONTROLLED Multivitamins 1 tab 03/21/17 09:00 03/21/17 08:51 Theragran Tab* PO 1 tab DAILY STACEY Administration Non-Formulary Medication 1 admin 03/21/17 17:00 Non Formulary Med10* PO .1 STACEY Ondansetron HCl 4 mg 03/20/17 15:44 Zofran Inj* IV Q6H PRN nausea Oxycodone HCl 10 mg 03/20/17 15:44 03/21/17 05:31 Roxycodone Tab* PO 10 mg Q4H PRN Administration PAIN - SEVERE Oxycodone/Acetaminophen 1 tab 03/20/17 15:44 Percocet 5/325 Tab* PO Q4H PRN PAIN - MODERATE Oxycodone/Acetaminophen 2 tab 03/20/17 15:44 03/21/17 08:52 Percocet 5/325 Tab* PO 2 tab Q4H PRN Administration PAIN - MODERATE TO SEVERE Paroxetine HCl 30 mg 03/20/17 21:00 03/20/17 21:09 Paxil Tab* PO 30 mg QPM STACEY Administration Polyethylene Glycol/Electrolytes 17 gm 03/20/17 15:44 Miralax* PO DAILY PRN Constipation Verapamil HCl 240 mg 03/20/17 21:00 03/21/17 08:52 Calan Sr Tab* PO 240 mg BID STACEY Administration Warfarin Sodium 6 mg 03/21/17 17:00 Coumadin Tab(*) PO 03/21/17 17:01 ONCE@1700 [facility] Protocol
[2017-03-21] MEDS ORDERED: Warfarin TAB(*) 6 MG PO ONE (17:00)
[2017-03-21] MEDS: PARoxetine HCL TAB* 10 MG PO SCH (17:03)
[2017-03-21] MEDS: PTO:Multivitamins/Minerals AREDS2 cap PO SCH (17:03)
[2017-03-21] MEDS: Morphine INJ* 2 MG/ML 1 ML SYRINGE (TWO MG - NEW SYRINGE VERSION) IV PRN (20:46)
[2017-03-22] MEDS: Morphine INJ* 2 MG/ML 1 ML SYRINGE (TWO MG - NEW SYRINGE VERSION) IV PRN ×2 (01:09→05:24)
[2017-03-22] MEDS: Levothyroxine TAB* 100 MCG TAB PO SCH (05:24)
[2017-03-22 06:12] LABS: Hematocrit 28 % (35-47); Hemoglobin 9.3 g/dl (12.0-16.0); Mean Platelet Volume 10 um3 (7.4-10.4)
[2017-03-22] MEDS: oxyCODONE/Acetamin 5/325 MG* TAB PO PRN ×4 (07:24→22:00)
[2017-03-22] MEDS: Docusate CAP* 100 MG PO SCH ×2 (09:38→19:16)
[2017-03-22] MEDS: Vitamin THERAPEUTIC TAB PO SCH (09:39)
[2017-03-22] MEDS: PTO:Multivitamins/Minerals AREDS2 cap PO SCH (09:40)
[2017-03-22] MEDS: Enoxaparin(*) 40 MG/0.4 ML SYR SUBCUT SCH (09:41)
[2017-03-22] MEDS: oxyCODONE TAB* 5 MG TAB PO PRN ×3 (09:49→19:15)
--- NOTE | 2017-03-22 09:55 | PN ---
Progress Note - Progress Note Date of Service: 03/22/17 SOAP: Subjective: Pt. is alert, c/o severe pain R hip. Objective: RLE - thigh swollen, soft, dressing changed, inc c/d/i. distally nvi. Vital Signs: Temp Pulse Resp BP Pulse Ox 99.3 F 86 16 128/48 96 03/22/17 09:26 03/22/17 09:26 03/22/17 09:53 03/22/17 09:26 03/22/17 09:26 Laboratory Results - last 24 hr 03/22/17 03/22/17 05:20 05:20 Hgb 9.3 L Hct 28 L Plt Count 147 L MPV 10 INR (Anticoag Therapy) 1.56 H Assessment: 86 yo F pod 2 s/p RTHA Plan: wbat pt/ot prn analgesia 4 mg coumadin tonight, lovenox today plan [facility] tomorrow or friday
[2017-03-22] MEDS: Lisinopril TAB* 10 MG PO SCH (10:09)
[2017-03-22] MEDS: Verapamil SR TAB* 240 MG PO SCH ×2 (10:09→20:08)
[2017-03-22] MEDS ORDERED: Warfarin TAB(*) 4 MG PO ONE (17:00)
[2017-03-22] MEDS: PARoxetine HCL TAB* 10 MG PO SCH (17:39)
[2017-03-22] MEDS: ALPRAZolam TAB* 0.5 MG PO PRN (17:42)
[2017-03-23] MEDS: oxyCODONE/Acetamin 5/325 MG* TAB PO PRN ×3 (01:58→19:36)
[2017-03-23] MEDS: oxyCODONE TAB* 5 MG TAB PO PRN ×3 (04:06→14:56)
[2017-03-23] MEDS: Levothyroxine TAB* 100 MCG TAB PO SCH (06:06)
[2017-03-23 06:18] LABS: Hematocrit 27 % (35-47); Mean Platelet Volume 9 um3 (7.4-10.4)
[2017-03-23] MEDS: Verapamil SR TAB* 240 MG PO SCH ×2 (08:34→19:36)
[2017-03-23] MEDS: Lisinopril TAB* 10 MG PO SCH (08:34)
[2017-03-23] MEDS: PTO:Multivitamins/Minerals AREDS2 cap PO SCH (08:34)
[2017-03-23] MEDS: Vitamin THERAPEUTIC TAB PO SCH (08:34)
[2017-03-23] MEDS: Docusate CAP* 100 MG PO SCH ×2 (08:34→19:36)
[2017-03-23] MEDS: Enoxaparin(*) 40 MG/0.4 ML SYR SUBCUT SCH (08:36)
--- NOTE | 2017-03-23 08:55 | PN ---
Progress Note - Progress Note Date of Service: 03/23/17 SOAP: Subjective: Pt. is alert, reports pain is much better today. Objective: RLE - dressing c/d/i. thigh soft, distally nvi. Vital Signs: Temp Pulse Resp BP Pulse Ox 97.7 F 66 16 139/55 96 03/23/17 07:27 03/23/17 07:27 03/23/17 08:34 03/23/17 07:27 03/23/17 07:15 Laboratory Results - last 24 hr 03/23/17 03/23/17 06:02 06:03 Hgb 9.0 L Hct 27 L Plt Count 144 L MPV 9 INR (Anticoag Therapy) 2.29 H Assessment: 86 yo M pod 3 s/p RTHA Plan: wbat rle pt/ot d/c lovenox hold coumadin tonight d/c to snf tomorrow
[2017-03-23] MEDS: ALPRAZolam TAB* 0.5 MG PO PRN ×2 (14:57→19:36)
[2017-03-23] MEDS: PARoxetine HCL TAB* 10 MG PO SCH (18:11)
[2017-03-24 06:00] LABS: Hematocrit 27 % (35-47); Mean Platelet Volume 9 um3 (7.4-10.4)
[2017-03-24] MEDS: Levothyroxine TAB* 100 MCG TAB PO SCH (06:12)
[2017-03-24] MEDS: oxyCODONE/Acetamin 5/325 MG* TAB PO PRN ×2 (06:12→10:25)
[2017-03-24 07:33] VITALS: BP 100/45
[2017-03-24] MEDS: Lisinopril TAB* 10 MG PO SCH (07:56)
[2017-03-24] MEDS: Docusate CAP* 100 MG PO SCH (07:58)
[2017-03-24] MEDS: Verapamil SR TAB* 240 MG PO SCH (07:58)
[2017-03-24] MEDS: PTO:Multivitamins/Minerals AREDS2 cap PO SCH (07:58)
[2017-03-24] MEDS: Vitamin THERAPEUTIC TAB PO SCH (07:59)
--- NOTE | 2017-03-24 10:42 | DS ---
CC: [facility] * DISCHARGE SUMMARY: DATE OF ADMISSION: 03/20/17 DATE OF DISCHARGE: 03/24/17 ATTENDING PROVIDER: Dr. Latanya Vang * (DICTATED BY RINA DE LA FUENTE) CHIEF COMPLAINT: 1. Right hip pain. 2. History of DVT/PE. 3. History of breast cancer. 4. Migraines. 5. Depression. 6. Hypothyroidism. 7. Macular degeneration. 8. Post-polio syndrome. 9. History of rheumatic fever. DISCHARGE DIAGNOSES: 1. 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 3. History of breast cancer. 4. Migraines. 5. Depression. 6. Hypothyroidism. 7. Macular degeneration. 8. Post-polio syndrome. 9. Rheumatic fever. PROCEDURE: Right total hip arthroplasty. CONSULTATIONS: 1. Physical therapy. 2. Occupational therapy. 3. Medicine. BRIEF HISTORY: Ms. Arciniega is a very pleasant 86-year-old female who presents with severe end-stage degenerative osteoarthritis of the right hip who failed conservative treatment and elected to undergo a right total hip arthroplasty on 03/20/[address] Latanya Vang. HOSPITAL COURSE: Ms. Arciniega was admitted to [facility] on 03/20/17, where she underwent a right total hip arthroplasty. Postoperatively, she recovered on the surgical short stay unit. Her operation was uncomplicated with an estimated blood loss of 400 cc. On postoperative day 2, her Condon was removed and the patient was voiding on her own. She was advanced to regular diet without difficulty. Her pain was controlled with p.o. Percocet. She was restarted on her home medications with hold parameters. Her labs and vital signs remained stable. She was able to weight bear as tolerated on the right lower extremity and worked well with physical therapy. Her DVT prophylaxis was managed with Coumadin and Lovenox until she reached a therapeutic INR. By postoperative day 4, she was orthopedically and medically stable for discharge to go to a long-term facility for further rehabilitation. PHYSICAL EXAMINATION: General: Well appearing, in no acute distress, alert and oriented x3. Vital Signs: Temperature 97.6, pulse 66, respirations 16, oxygen saturation 94% on room air, blood pressure 100/45. On date of discharge , examination by Cindy Vo showed that the right lower extremity is nonedematous with a surgical incision intact and dry. She had positive dorsiflexion and plantar flexion with sensation intact to light touch. DIAGNOSTIC STUDIES/LAB DATA: On the date of discharge, H and H of 9.0 and 27 with a platelet count of 149 and an INR of 2.15. Radiographs: Postoperative films taken on 03/20/17 show bilateral hip arthroplasty and proper placement. DISCHARGE MEDICATIONS: 1. Xanax 1 mg p.o. t.i.d. 0.5 mg p.r.n. 2. Colace 100 mg p.o. b.i.d. 3. Synthroid 100 mcg p.o. q.a.m. 4. Lisinopril 20 mg p.o. q.a.m. hold parameters for systolic blood pressure less than 110 and diastolic blood pressure less than 75. 5. PreserVision 1 cap daily. 6. Oxycodone/acetaminophen 5/325 one to two tablets every 4 to 6 hours as needed for pain, not to exceed 12 tablets in a day. Do not exceed more than 4000 mg of Tylenol/acetaminophen in a 24-hour period. 7. Paxil 300 mg p.o. q. p.m. 8. Verapamil 240 mg p.o. b.i.d. with hold parameters of blood pressure less than 110 and diastolic less than 75. 9. Coumadin 2 mg tablets 1 to 3 tablets as directed by physician with INR draws on Mondays and . 10. AREDS 1 tablet p.o. b.i.d. CONDITION ON DISCHARGE: Stable. DISCHARGE INSTRUCTIONS: Ms. Arciniega is a very pleasant 86-year-old female, status post right total hip arthroplasty, which was uncomplicated. She is orthopedically and medically stable for discharge to go home with home services. Her labs and vital signs are stable. She will restart her home medications, with hold parameters for her blood pressure. She will take 2 mg of Coumadin tonight. Hold the Coumadin on Friday, take 2 mg on Friday and have a repeat INR check on . She will have INR draws on Mondays and at her nursing facility. She will remain weightbearing as tolerated in the right lower extremity and continue to work with physical therapy. She will take Percocet as needed for pain control and Colace 3 times a day for constipation. She will follow up with Dr. Vang in approximately 10 to 14 days for incision check and suture removal. She is instructed to go immediately to the ER if she develops chest pain or shortness of breath. Should she develop fever, increasing pain or redness, she needs to call the office immediately. RINA DE LA FUENTE [id number]/[facility] #: [id number] BRIGITTE
== END 2017-03-24 11:10 | DRG 470 ==
LOC: AA 10:32 → SSU 19:37
PROVIDERS: ADMIT Orthopaedic Surgery Adult Reconstructive Orthopaedic Surgery; ATTEND Orthopaedic Surgery Adult Reconstructive Orthopaedic Surgery
PROC: 0SR904A Replacement of Right Hip Joint with Ceramic on Polyethylene Synthetic Substitute, Uncemented, Open Approach (ICD-10-PCS; principal; 2017-03-20 13:00)
DX: M16.11 Unilateral primary osteoarthritis, right hip (principal); G14 Postpolio syndrome; E03.9 Hypothyroidism, unspecified; G43.909 Migraine, unspecified, not intractable, without status migrainosus; H35.30 Unspecified macular degeneration; F32.9 Major depressive disorder, single episode, unspecified; Z96.653 Presence of artificial knee joint, bilateral; Z96.642 Presence of left artificial hip joint; R42 Dizziness and giddiness; I10 Essential (primary) hypertension; F41.9 Anxiety disorder, unspecified; Z85.3 Personal history of malignant neoplasm of breast; Z86.711 Personal history of pulmonary embolism; Z86.718 Personal history of other venous thrombosis and embolism; Z88.8 Allergy status to other drugs, medicaments and biological substances; Z79.01 Long term (current) use of anticoagulants; Z90.710 Acquired absence of both cervix and uterus; Z98.49 Cataract extraction status, unspecified eye
CPT/HCPCS: 36415; 80048; 85014; 85018; 85049; 85610; 88304; 88311; A9270-GY; C1713; C1776; J0330; J0690; J1100; J1170; J1240; J1650; J1885; J2250; J2270; J2405; J2704; J3010

== ENCOUNTER 2017-11-14 14:44 | Emergency (ER) | payer MEDICARE ==
[2017-11-14 15:33] VITALS: BP 179/81
[2017-11-14] MEDS ORDERED: Ondansetron ODT TAB* 4 MG PO ONE (15:41)
[2017-11-14] MEDS ORDERED: Ketorolac INJ* 30 MG/ML 1 ML VIAL IM ONE (15:41)
--- NOTE | 2017-11-14 15:53 | UC ---
Headache HPI - HPI Summary HPI Summary: Patient states she woke at 2am with a pounding sharp oppressive headache on left side of her head radiating to jaw and around eye. Patient states she has a long standing history of migraine headaches which occur in the same area of her head. Denies blurred vision, aura. C/o dizziness and nausea but denies vomiting. States she takes codeine and fioricet, she cannot tolerate sumitriptan due to side effects. States she is under a lot of stress and cannot sleep well - History Of Current Complaint Chief Complaint: UCHeadache Stated Complaint: MIGRAINE Time Seen by Provider: 11/14/17 15:20 Hx Obtained From: Patient ?: No Onset/Duration: Sudden Onset Onset Of Symptoms: Sudden Initially Headache Was: Severe Currently Pain Is: Severe Pain Intensity: 10 Timing: Constant, Hours Character: Sharp, Pressure Location of Headache: Temporal Aggravating Factor(s): Nothing Allevating Factor(s): Nothing Associated Signs And Symptoms: Positive: Dizziness, Nausea, Sinus Pressure - Risk Factors SAH Risk Factors: Negative Meningitis Risk Factors: Negative SDH Risk Factors: Negative - Allergies/Home Medications Allergies/Adverse Reactions: Allergies Allergy/AdvReac Type Severity Reaction Status Date / Time MS Sumatriptan [From Imitrex] Allergy Severe Hallucinati Verified 03/20/17 10:54 ons Iodine and Iodide Containing Allergy Hives/Diff. Verified 11/14/17 15:37 Produc Breathing/I tching contrast CT dye Allergy Intermediate body rash Uncoded 03/20/17 10:54 and itching seasonal/environmental Allergy Intermediate Runny Nose Uncoded 03/20/17 10:54 allergies PMH/Surg Hx/FS Hx/Imm Hx Previously Healthy: Yes Endocrine History: Hypothyroidism Cardiovascular History: Hypertension Neurological History: Migraine Psychological History: Anxiety, Depression - Surgical History Surgical History: Yes Surgery Procedure, Year, and Place: HYSTERECTOMY 1972;. RIGHT BREAST LUMPECTOMY x2 1999,. COLON RESECTION 2004,. illeostomy placement and reversal 2004 & 2005,. THYROIDECTOMY 1984 (04/08),. APPENDECTOMY,. TONSILS AND ADENOIDS, . BILATERAL KNEE REPLACED ,. BILATERAL CATARACTS 2000,. ABD HERNIA 2006. 08/27/2016 LT TOTAL HIP. RIGHT TOTAL HIP MAR 2017 - Family History Known Family History: Positive: Cardiac Disease - Mother and brother. - Social History Alcohol Use: Daily Alcohol Amount: 1-2 drinks/month Substance Use Type: None Smoking Status (MU): Never Smoked Tobacco Amount Used/How Often: 5 CIGARETTES A DAY/ 2 YRS Length of Time of Smoking/Using Tobacco: 2 YRS Have You Smoked in the Last Year: No When Did the Patient Quit Smoking/Using Tobacco: 1954 - Immunization History Most Recent Influenza Vaccination: has had this season per pt Most Recent Tetanus Shot: UP TODATE Most Recent Pneumonia Vaccination: HAS HAD Review of Systems Neurological: Headache Psychological: Anxious All Other Systems Reviewed And Are Negative: Yes Physical Exam Triage Information Reviewed: Yes Appearance: Pain Distress, Obese Vital Signs: Initial Vital Signs Temp 97.0 F 11/14/17 15:28 Pulse 68 11/14/17 15:28 Resp 20 11/14/17 15:28 BP 179/81 11/14/17 15:28 Pulse Ox 99 11/14/17 15:28 Vital Signs Reviewed: Yes Eyes: Positive: Conjunctiva Clear Headache Course/Dx - Course Course Of Treatment: patient responded to toradol and zofran. States pain went from 01/14 to 07/15. States she does not want any prescriptions and she will continue taking the motrin or advil she has at home - Differential Dx/Diagnosis Provider Diagnoses: Migraine Headache. HTN Discharge - Sign-Out/Discharge Documenting (check all that apply): Patient Departure - Discharge Plan Condition: Stable Disposition: HOME Prescriptions: Ondansetron ODT TAB* [Zofran 4 MG Odt TAB*] 4 mg PO Q8H PRN #10 tab.odt PRN Reason: Nausea Tramadol HCl/Acetaminophen [Ultracet Tablet] 1 each PO QID PRN #20 tablet MDD 4 PRN Reason: Pain Patient Education Materials: Migraine Headache (ED), Ondansetron (By injection) Referrals: Malcolm De La Torre DO [Primary Care Provider] - Additional Instructions: take advil (200mg ) 3 tablets every 8 hr as needed - Billing Disposition and Condition Condition: STABLE Disposition: Home
== END 2017-11-14 17:33 | disposition home or self-care (01) ==
LOC: UCEAST 14:44
DX: G43.909 Migraine, unspecified, not intractable, without status migrainosus (principal); I10 Essential (primary) hypertension; Z88.8 Allergy status to other drugs, medicaments and biological substances; Z91.041 Radiographic dye allergy status; Z96.653 Presence of artificial knee joint, bilateral; Z96.643 Presence of artificial hip joint, bilateral; Z87.891 Personal history of nicotine dependence
CPT/HCPCS: 96372; 99212; A9270-GY; G0463; J1885

== ENCOUNTER 2019-03-09 11:49 | Day surgery (SDC) | payer MEDICARE ==
[~2019-03-09 11:49] MED LIST changes: -Buffered Lidocaine 0.9% SYRIN* 5 ML/SYR SYRINGE INTRADERM ONE; +Buffered Lidocaine 1% SYRIN* 1 ML/SYRINGE INTRADERM ONE; -Famotidine IV* 10 MG/ML 2 ML (20 mg) IV ONE; -Gabapentin CAP(*) 300 MG PO ONE; +Lactated Ringers 1000 ML Bag* 1,000 ML IV SCH
[2019-03-09] MEDS ORDERED: ceFAZolin 2 GM in NS PREMIX(*) 2 GM/100 ML BAG IVPB ONE (12:36)
[2019-03-09] MEDS ORDERED: Naloxone* 0.4 MG/ML 1 ML VIAL IV PRN ×2 (14:40→15:01)
[2019-03-09] MEDS ORDERED: Bupivacaine 0.25% SDV PF* 10 ML VIAL INJ ONE (15:45)
[2019-03-09] MEDS ORDERED: Lidocaine 1% w EPI 1:100,000* MDV 20 ML VIAL ONE (15:45)
[2019-03-09] MEDS ORDERED: Midazolam* 1 MG/ML 2 ML VIAL (2 MG) ONE (16:05)
[2019-03-09] MEDS ORDERED: fentaNYL* 50 MCG/ML 2 ML VIAL (100 MCG VIAL) ONE (16:05)
[2019-03-09] MEDS ORDERED: Lidocaine 2% PF * 5 ML VIAL ONE (16:28)
[2019-03-09] MEDS ORDERED: Propofol* 10 MG/ML 20 ML BTL ONE ×2 (16:28→16:49)
[2019-03-09] MEDS ORDERED: Labetalol IV* 5 MG/ML 20 ML VIAL ONE (17:17)
[2019-03-09] MEDS ORDERED: Lisinopril TAB* 10 MG PO ONE (18:00)
[2019-03-09 18:01] VITALS: BP 147/81
[2019-03-11] MEDS ORDERED: Labetalol IV* 5 MG/ML 20 ML VIAL IV ONE (03:00)
== END 2019-03-09 18:11 | disposition home or self-care (01) ==
LOC: OR 11:49
PROVIDERS: ATTEND Plastic Surgery
DX: C44.519 Basal cell carcinoma of skin of other part of trunk (principal); I10 Essential (primary) hypertension; Z86.711 Personal history of pulmonary embolism; Z85.828 Personal history of other malignant neoplasm of skin; Z85.3 Personal history of malignant neoplasm of breast; Z85.038 Personal history of other malignant neoplasm of large intestine; E03.9 Hypothyroidism, unspecified; M19.90 Unspecified osteoarthritis, unspecified site; G25.81 Restless legs syndrome; M79.7 Fibromyalgia
CPT/HCPCS: 88305; 88341; 88342; A9270-GY; J0690; J2250; J2704; J3010; J3490

== ENCOUNTER 2020-01-21 07:34 | Inpatient (IN) ==
[2020-01-21] MEDS ORDERED: Ondansetron 4 mg VIAL 2 MG/ML 2 ml VIAL IV ONE (07:47)
[2020-01-21] MEDS ORDERED: NS 0.9% 1000 ml BAG 1,000 ML IV ONE (07:47)
[2020-01-21] MEDS ORDERED: Morphine 4 MG/ML VIAL (1 ml) IV ONE (07:57)
[2020-01-21 08:34] LABS: ABS Eosinophils 0.1 10^3/ul (0-0.6); ABS Monocytes 0.5 10^3/ul (0-0.8); ABS Neutrophils 6.2 10^3/ul (1.5-7.7); Eosinophil % 1.5 %; Hematocrit 44 % (35-47); Hemoglobin 14.6 g/dL (12.0-16.0); Lymphocyte % 12.3 %; Mean Corpuscular HGB Conc 33 g/dL (31-36); Mean Corpuscular Hemoglobin 31 pg (27-31); Mean Corpuscular Volume 92 fL (80-97); Mean Platelet Volume 9.3 fL (7.4-10.4); Platelet Count 206 10^3/uL (150-450); Red Blood Count 4.78 10^6 /uL (3.70-4.87); Red Cell Distribution Width 15 % (10-15); White Blood Count 7.8 10^3/uL (3.5-10.8)
[2020-01-21 08:42] LABS: Albumin 4.1 g/dL (3.2-5.2); Albumin/Globulin Ratio 1.4 (1-3); BUN/Creatinine Ratio 25.3 (8-20); C Reactive Protein 1.59 mg/L (<8.01); Calcium 9.5 mg/dL (8.6-10.3); EGFR African American 78.7 (>60); Globulin 2.9 g/dL (2-4); Potassium 4.1 mmol/L (3.5-5.0); Total Bilirubin 0.3 mg/dL (0.2-1.0)
[2020-01-21 09:12] LABS: Urine Appearance Clear; Urine Bilirubin Negative (Negative); Urine Blood Negative (Negative); Urine Color Yellow; Urine Glucose Negative (Negative); Urine Ketones Negative (Negative); Urine Nitrite Negative (Negative); Urine Protein Negative (Negative); Urine Specific Gravity 1.011 (1.010-1.030); Urine Urobilinogen Negative (Negative)
[2020-01-21 09:44] LABS: Urine Bacteria Absent (Absent); Urine Red Blood Cell Trace(0-2/hpf) (Absent); Urine Squamous Epithelial Cell Present (Absent); Urine White Blood Cell Trace(0-5/hpf) (Absent)
[2020-01-21] MEDS ORDERED: Ondansetron 4 mg VIAL 2 MG/ML 2 ml VIAL IV PRN (10:23)
[2020-01-21] MEDS: Lactated Ringers 1000 ml BAG 1,000 ML IV SCH ×2 (12:28→23:19)
[2020-01-21] MEDS: Heparin 5000 UNITS/ML 1 mL VIAL SUBCUT SCH ×2 (14:11→21:36)
[2020-01-22] MEDS: Heparin 5000 UNITS/ML 1 mL VIAL SUBCUT SCH ×3 (06:00→21:22)
[2020-01-22] MEDS: Morphine 2 MG/ML SYRINGE IV PRN ×2 (07:46→12:34)
[2020-01-22 09:09] LABS: ABS Eosinophils 0.1 10^3/ul (0-0.6); ABS Lymphocytes 1.3 10^3/ul (1.0-4.8); ABS Monocytes 0.4 10^3/ul (0-0.8); ABS Neutrophils 4.1 10^3/ul (1.5-7.7); Eosinophil % 2.4 %; Hematocrit 44 % (35-47); Hemoglobin 14.4 g/dL (12.0-16.0); Lymphocyte % 21.5 %; Mean Corpuscular HGB Conc 33 g/dL (31-36); Mean Corpuscular Hemoglobin 30 pg (27-31); Mean Corpuscular Volume 92 fL (80-97); Mean Platelet Volume 9.3 fL (7.4-10.4); Platelet Count 208 10^3/uL (150-450); Red Blood Count 4.76 10^6 /uL (3.70-4.87); Red Cell Distribution Width 15 % (10-15); White Blood Count 5.9 10^3/uL (3.5-10.8)
[2020-01-22 09:21] LABS: BUN/Creatinine Ratio 17.4 (8-20); EGFR African American 97.4 (>60); EGFR Non-African American 80.5 (>60)
[2020-01-22] MEDS: Lactated Ringers 1000 ml BAG 1,000 ML IV SCH (19:40)
[2020-01-23] MEDS: Lactated Ringers 1000 ml BAG 1,000 ML IV SCH (05:34)
[2020-01-23] MEDS: Heparin 5000 UNITS/ML 1 mL VIAL SUBCUT SCH ×2 (05:41→13:37)
[2020-01-23 06:10] LABS: Calcium 8.8 mg/dL (8.6-10.3); EGFR African American 114.4 (>60); EGFR Non-African American 94.6 (>60); Potassium 3.6 mmol/L (3.5-5.0)
[2020-01-23 11:42] VITALS: BP 147/74
== END 2020-01-23 15:10 | disposition home or self-care (01) | DRG 390 ==
LOC: SSU 07:34 → ED 07:34
PROVIDERS: ADMIT Hospitalist; ATTEND Student in an Organized Health Care Education/Training Program

== ENCOUNTER 2020-08-16 09:31 | Observation (INO) ==
[2020-08-16] MEDS ORDERED: NS 0.9% 1000 ml BAG 1,000 ML IV ONE ×2 (10:07→13:04)
[2020-08-16 11:14] LABS: ABS Lymphocytes 0.9 10^3/ul (1.0-4.8); ABS Monocytes 0.8 10^3/ul (0-0.8); ABS Neutrophils 9.2 10^3/ul (1.5-7.7); Eosinophil % 0.3 %; Hematocrit 41 % (35-47); Hemoglobin 13.8 g/dL (12.0-16.0); Lymphocyte % 7.8 %; Mean Corpuscular HGB Conc 34 g/dL (31-36); Mean Corpuscular Hemoglobin 31 pg (27-31); Mean Corpuscular Volume 92 fL (80-97); Mean Platelet Volume 9.1 fL (7.4-10.4); Platelet Count 194 10^3/uL (150-450); Red Blood Count 4.48 10^6 /uL (3.70-4.87); Red Cell Distribution Width 15 % (10-15); White Blood Count 10.9 10^3/uL (3.5-10.8)
[2020-08-16 11:32] LABS: Activated Partial Thrombo Time 28.6 seconds (26.0-38.0); INR 1.03 (0.82-1.09)
[2020-08-16 11:51] LABS: Potassium 3.6 mmol/L (3.5-5.0)
[2020-08-16 11:52] LABS: Albumin 3.9 g/dL (3.2-5.2); Albumin/Globulin Ratio 1.6 (1-3); C Reactive Protein 11.49 mg/L (<8.01); Calcium 8.9 mg/dL (8.6-10.3); EGFR African American 85.6 (>60); EGFR Non-African American 70.7 (>60); Globulin 2.5 g/dL (2-4); Total Bilirubin 0.6 mg/dL (0.2-1.0); Total Protein 6.4 g/dL (6.4-8.9)
[2020-08-16] MEDS ORDERED: Morphine 2 MG/ML SYRINGE IV PRN (13:48)
[2020-08-16] MEDS ORDERED: Prochlorperazine 5 mg/ml 2 ml VIAL (10 mg) IV PRN (13:51)
[2020-08-16] MEDS ORDERED: cefTRIAXone 1 gm/50 mL NS BAG 1 GM/50 ML BAG IV ONE (14:06)
[2020-08-16] MEDS ORDERED: metroNIDAZOLE IV 500 MG/100ML 500 MG/100 ML BAG IVPB ONE (14:06)
[2020-08-16] MEDS: metroNIDAZOLE IV 500 MG/100ML 500 MG/100 ML BAG IVPB SCH (17:49)
[2020-08-16] MEDS: NS 0.9% 1000 ml BAG 1,000 ML IV SCH (17:49)
[2020-08-16 20:10] LABS: Hematocrit 41 % (35-47); Hemoglobin 13.3 g/dL (12.0-16.0)
[2020-08-17] MEDS: metroNIDAZOLE IV 500 MG/100ML 500 MG/100 ML BAG IVPB SCH ×4 (03:01→23:36)
[2020-08-17 05:17] LABS: Hematocrit 36 % (35-47); Hemoglobin 12.3 g/dL (12.0-16.0)
[2020-08-17 05:20] LABS: ABS Eosinophils 0.1 10^3/ul (0-0.6); ABS Lymphocytes 1.4 10^3/ul (1.0-4.8); ABS Monocytes 0.8 10^3/ul (0-0.8); ABS Neutrophils 7.7 10^3/ul (1.5-7.7); Eosinophil % 0.5 %; Hematocrit 36 % (35-47); Hemoglobin 12.2 g/dL (12.0-16.0); Lymphocyte % 14.2 %; Mean Corpuscular HGB Conc 34 g/dL (31-36); Mean Corpuscular Hemoglobin 31 pg (27-31); Mean Corpuscular Volume 91 fL (80-97); Mean Platelet Volume 8.9 fL (7.4-10.4); Platelet Count 167 10^3/uL (150-450); Red Blood Count 3.91 10^6 /uL (3.70-4.87); Red Cell Distribution Width 15 % (10-15)
[2020-08-17 05:39] LABS: C Reactive Protein 83.84 mg/L (<8.01); Calcium 7.7 mg/dL (8.6-10.3); EGFR African American 128.9 (>60); EGFR Non-African American 106.5 (>60); Potassium 3.2 mmol/L (3.5-5.0)
[2020-08-17] MEDS: NS 0.9% 1000 ml BAG 1,000 ML IV SCH (06:22)
[2020-08-17] MEDS: KCL 20 MEQ/100 ML IVPREMIX 20 MEQ/100 ML BAG IV SCH ×2 (11:59→14:29)
[2020-08-17 12:56] LABS: Hematocrit 36 % (35-47); Hemoglobin 11.9 g/dL (12.0-16.0)
[2020-08-17] MEDS ORDERED: cefTRIAXone 1 gm/50 mL NS BAG 1 GM/50 ML BAG IVPB SCH (14:00)
[2020-08-18 06:03] LABS: ABS Eosinophils 0.2 10^3/ul (0-0.6); ABS Lymphocytes 1.5 10^3/ul (1.0-4.8); ABS Monocytes 0.6 10^3/ul (0-0.8); ABS Neutrophils 7.1 10^3/ul (1.5-7.7); Eosinophil % 1.7 %; Hematocrit 34 % (35-47); Hemoglobin 11.6 g/dL (12.0-16.0); Lymphocyte % 15.7 %; Mean Corpuscular HGB Conc 34 g/dL (31-36); Mean Corpuscular Hemoglobin 31 pg (27-31); Mean Corpuscular Volume 92 fL (80-97); Mean Platelet Volume 9.5 fL (7.4-10.4); Platelet Count 159 10^3/uL (150-450); Red Cell Distribution Width 15 % (10-15); White Blood Count 9.4 10^3/uL (3.5-10.8)
[2020-08-18 06:17] LABS: Calcium 8.2 mg/dL (8.6-10.3); EGFR African American 118.7 (>60); EGFR Non-African American 98.1 (>60); Potassium 3.6 mmol/L (3.5-5.0)
[2020-08-18] MEDS: metroNIDAZOLE IV 500 MG/100ML 500 MG/100 ML BAG IVPB SCH (08:48)
[2020-08-18 11:56] VITALS: BP 146/67
== END 2020-08-18 12:30 | disposition home or self-care (01) ==
LOC: ED 09:31 → MEDTELE 09:31
PROVIDERS: ADMIT Internal Medicine; ATTEND Internal Medicine

== ENCOUNTER 2022-01-15 09:25 | Inpatient (IN) ==
[2022-01-15] MEDS ORDERED: Ondansetron 4 mg VIAL 2 MG/ML 2 ml VIAL IV ONE (09:42)
[2022-01-15] MEDS ORDERED: Lactated Ringers 1000 ml BAG 1,000 ML IV ONE (09:42)
[2022-01-15] MEDS ORDERED: Morphine 2 MG/ML SYRINGE IV ONE ×2 (10:38→12:44)
[2022-01-15 10:46] LABS: ABS Eosinophils 0.1 10^3/ul (0-0.6); ABS Lymphocytes 0.9 10^3/ul (1.0-4.8); ABS Monocytes 0.3 10^3/ul (0-0.8); ABS Neutrophils 3.2 10^3/ul (1.5-7.7); Eosinophil % 2.6 %; Hematocrit 39 % (35-47); Hemoglobin 12.8 g/dL (12.0-16.0); Lymphocyte % 19.1 %; Mean Corpuscular HGB Conc 33 g/dL (31-36); Mean Corpuscular Hemoglobin 30 pg (27-31); Mean Corpuscular Volume 92 fL (80-97); Mean Platelet Volume 9.6 fL (7.4-10.4); Nucleated Red Blood Cells % 0.1; Platelet Count 149 10^3/uL (150-450); Red Blood Count 4.24 10^6 /uL (3.70-4.87); Red Cell Distribution Width 15 % (10-15); White Blood Count 4.5 10^3/uL (3.5-10.8)
[2022-01-15 11:48] LABS: Urine Appearance Clear; Urine Bilirubin Negative (Negative); Urine Blood Negative (Negative); Urine Color Yellow; Urine Glucose Negative (Negative); Urine Ketones Negative (Negative); Urine Nitrite Negative (Negative); Urine Protein Negative (Negative); Urine Specific Gravity 1.009 (1.002-1.030); Urine Urobilinogen Negative (Negative)
[2022-01-15 11:50] LABS: Albumin 3.8 g/dL (3.2-5.2); CO2 Carbon Dioxide 24 mmol/L (22-32); Calcium 8.4 mg/dL (8.6-10.3); Chloride 108 mmol/L (101-111); Sodium 139 mmol/L (135-145)
[2022-01-15 11:56] LABS: ALT 12 U/L (7-52); Albumin/Globulin Ratio 1.7 (1-3); Alkaline Phosphatase 102 U/L (35-149); Blood Urea Nitrogen 19 mg/dL (6-24); C Reactive Protein 1.14 mg/L (<8.01); Globulin 2.2 g/dL (2-4); Glucose 96 mg/dL (70-100); Lipase 14 U/L (11.0-82.0); eGFR CKD-EPI 85.7 (>60)
[2022-01-15 11:58] LABS: Anion Gap 7 mmol/L (2-11)
[2022-01-15] MEDS ORDERED: Diatrizoate Meg/Sod(CONTRAST) 30 ML ORAL.SOLN PO ONE (12:51)
[2022-01-15] MEDS ORDERED: Lactated Ringers 1000 ml BAG 1,000 ML IV SCH (13:00)
[2022-01-15 14:27] LABS: Potassium Redraw 4.1 mmol/L (3.5-5.0)
[2022-01-15] MEDS ORDERED: Ondansetron 4 mg VIAL 2 MG/ML 2 ml VIAL IV PRN (15:54)
[2022-01-15] MEDS ORDERED: LORazepam 2 mg VIAL 1 ml IV PUSH PRN (16:59)
[2022-01-15] MEDS ORDERED: Lorazepam PYXIS KEY PRN (16:59)
[2022-01-15] MEDS ORDERED: LORazepam 2 mg VIAL 1 ml ONE (17:03)
[2022-01-15] MEDS: Pantoprazole VIAL 40 MG VIAL IV SCH (22:26)
[2022-01-15] MEDS: Heparin 5000 UNITS/ML 1 mL VIAL SUBCUT SCH (22:27)
[2022-01-16] MEDS: Benzocaine/Menthol LOZ PO PRN (05:56)
[2022-01-16 06:14] LABS: ABS Eosinophils 0.1 10^3/ul (0-0.6); ABS Lymphocytes 0.9 10^3/ul (1.0-4.8); ABS Monocytes 0.4 10^3/ul (0-0.8); ABS Neutrophils 4.9 10^3/ul (1.5-7.7); Eosinophil % 1.2 %; Hematocrit 40 % (35-47); Hemoglobin 13.2 g/dL (12.0-16.0); Lymphocyte % 14.9 %; Mean Corpuscular HGB Conc 33 g/dL (31-36); Mean Corpuscular Hemoglobin 30 pg (27-31); Mean Corpuscular Volume 92 fL (80-97); Mean Platelet Volume 9.9 fL (7.4-10.4); Platelet Count 172 10^3/uL (150-450); Red Blood Count 4.41 10^6 /uL (3.70-4.87); Red Cell Distribution Width 15 % (10-15); White Blood Count 6.2 10^3/uL (3.5-10.8)
[2022-01-16 06:44] LABS: Calcium 8.3 mg/dL (8.6-10.3); Magnesium 1.9 mg/dL (1.9-2.7); Potassium 4.4 mmol/L (3.5-5.0)
[2022-01-16 06:49] LABS: Phosphorus 3.7 mg/dL (2.5-5.0); eGFR CKD-EPI 82.9 (>60)
[2022-01-16 07:34] LABS: TSH Ultra Thyroid Stim Horm 0.44 mcIU/mL (0.34-5.60)
[2022-01-16] MEDS ORDERED: Benzocaine/Butamben/Tetracain (CETACAINE - SINGLE USE) 5 gm TOPICAL ONE (09:29)
[2022-01-16] MEDS: Heparin 5000 UNITS/ML 1 mL VIAL SUBCUT SCH ×2 (09:43→20:09)
[2022-01-16] MEDS ORDERED: Acetaminophen IV 1 GM/100ML 1,000 MG/100 ML BAG IV PRN (10:08)
[2022-01-16] MEDS ORDERED: HYDROmorphone 0.5 MG/0.5 ML SYRINGE IV SLOW PU PRN ×3 (10:12→18:36)
[2022-01-16] MEDS ORDERED: HYDROmorphone 1 MG/1 ML SYRINGE IV SLOW PU PRN (10:12)
[2022-01-16] MEDS ORDERED: Butalb/Acetamin/Caff TAB 325-50-40MG PO ONE (10:20)
[2022-01-16] MEDS: Pantoprazole VIAL 40 MG VIAL IV SCH (10:59)
[2022-01-16] MEDS ORDERED: Morphine 2 MG/ML SYRINGE IV ONE (16:40)
[2022-01-16] MEDS ORDERED: Lactated Ringers 1000 ml BAG 1,000 ML IV SCH (17:00)
[2022-01-16] MEDS ORDERED: Acetaminophen IV 1 GM/100ML 1,000 MG/100 ML BAG IV SCH (19:00)
[2022-01-16] MEDS: Acetaminophen IV 1 GM/100ML 1,000 MG/100 ML BAG IV SCH (22:26)
[2022-01-17] MEDS: Acetaminophen IV 1 GM/100ML 1,000 MG/100 ML BAG IV SCH ×2 (05:55→14:42)
[2022-01-17 06:22] LABS: ABS Eosinophils 0.1 10^3/ul (0-0.6); ABS Lymphocytes 1.4 10^3/ul (1.0-4.8); ABS Monocytes 0.4 10^3/ul (0-0.8); Eosinophil % 3.6 %; Hematocrit 39 % (35-47); Hemoglobin 12.6 g/dL (12.0-16.0); Lymphocyte % 35.1 %; Mean Corpuscular HGB Conc 32 g/dL (31-36); Mean Corpuscular Hemoglobin 30 pg (27-31); Mean Corpuscular Volume 92 fL (80-97); Mean Platelet Volume 10.1 fL (7.4-10.4); Nucleated Red Blood Cells % 0.2; Platelet Count 157 10^3/uL (150-450); Red Blood Count 4.23 10^6 /uL (3.70-4.87); Red Cell Distribution Width 15 % (10-15); White Blood Count 3.9 10^3/uL (3.5-10.8)
[2022-01-17 06:43] LABS: Calcium 8.4 mg/dL (8.6-10.3); Magnesium 1.9 mg/dL (1.9-2.7); Phosphorus 3.1 mg/dL (2.5-5.0); Potassium 4.2 mmol/L (3.5-5.0); eGFR CKD-EPI 86.4 (>60)
[2022-01-17] MEDS: Heparin 5000 UNITS/ML 1 mL VIAL SUBCUT SCH ×2 (09:12→21:19)
[2022-01-17] MEDS: Pantoprazole VIAL 40 MG VIAL IV SCH (09:14)
[2022-01-17] MEDS: Benzocaine/Menthol LOZ PO PRN (14:42)
[2022-01-18 05:59] LABS: ABS Eosinophils 0.1 10^3/ul (0-0.6); ABS Lymphocytes 0.7 10^3/ul (1.0-4.8); ABS Monocytes 0.3 10^3/ul (0-0.8); ABS Neutrophils 3.4 10^3/ul (1.5-7.7); Eosinophil % 3.1 %; Hematocrit 39 % (35-47); Hemoglobin 12.5 g/dL (12.0-16.0); Lymphocyte % 15.1 %; Mean Corpuscular HGB Conc 32 g/dL (31-36); Mean Corpuscular Hemoglobin 29 pg (27-31); Mean Corpuscular Volume 92 fL (80-97); Mean Platelet Volume 10.4 fL (7.4-10.4); Platelet Count 150 10^3/uL (150-450); Red Blood Count 4.29 10^6 /uL (3.70-4.87); Red Cell Distribution Width 14 % (10-15); White Blood Count 4.7 10^3/uL (3.5-10.8)
[2022-01-18 06:33] LABS: Calcium 8.6 mg/dL (8.6-10.3); Magnesium 1.9 mg/dL (1.9-2.7); Phosphorus 2.9 mg/dL (2.5-5.0); Potassium 3.8 mmol/L (3.5-5.0); eGFR CKD-EPI 86.4 (>60)
[2022-01-18] MEDS: Heparin 5000 UNITS/ML 1 mL VIAL SUBCUT SCH (09:00)
[2022-01-18] MEDS: Pantoprazole VIAL 40 MG VIAL IV SCH ×2 (09:00→09:02)
[2022-01-18 10:59] VITALS: BP 169/87
== END 2022-01-18 12:05 | disposition home or self-care (01) | DRG 390 ==
LOC: ED 09:25 → EDHOLD 09:25 → MED 01-16 15:57
PROVIDERS: ADMIT Hospitalist; ATTEND Hospitalist